=== PATIENT | female | born 1945 | race African-American/Black ===

== ENCOUNTER 2023-06-04 14:20 | Inpatient (IN) ==
--- NOTE | 2023-06-04 15:20 | Emergency Department Note ---
Impression & Plan Weakness, Hypertension, Elevated troponin, Acute hyponatremia, Hypokalemia ED Provider Note NAME: TUTU PAINTING AGE: 78 SEX: F : 1945 ARRIVES VIA: Walk-In INFORMANT: [Patient][family] ED PROVIDER(S): [Lambert Damian MD] CHIEF COMPLAINT: Hypertension HISTORY OF PRESENT ILLNESS: The patient is a 78-year-old female who has not felt well for some time. She was at dermatology today and her blood pressure was high, she was sent to the ER for evaluation. Of note, she did not take her daily BP meds this morning. The patient has scleroderma, a lot of her issues may in fact be from worsening of her scleroderma--as per dermatology. Patient complains of some exertional dyspnea. She is weak. She has a mild headache. She also complains of some urinary urgency/frequency although it does not burn to urinate. There has been no fever, no cough. She has lost some weight. She denies vomiting or diarrhea. PMHx/PSHx/Social Hx: See Below PHYSICAL EXAM: GENERAL: Patient is in no acute distress. Quite thin. HEENT: No acute trauma, normocephalic atraumatic, mucous membranes moist, no nasal congestion. NECK: No stridor, no adenopathy, no meningismus, trachea is midline. LUNGS: Diminished breath sounds bilaterally, no wheezing, no respiratory distress. HEART: Without murmurs gallops or rubs, regular rate and rhythm. ABDOMEN: Soft, nontender, no peritonitis. EXTREMITIES: No cyanosis, full range of motion of all the joints without pain or difficulty. NEUROLOGIC: Awake and alert, no speech slur, no acute motor or sensory deficits, no focal weakness. SKIN: No jaundice, no diaphoresis. DIFFERENTIAL DIAGNOSIS: Electrolyte imbalance, dehydration, anemia, UTI, medication noncompliance, intracranial bleeding, cardiac ischemia, among others. EMERGENCY DEPARTMENT PROCEDURES: MEDICAL DECISION MAKING: There is a mild leukocytosis, this could be consistent with infection. There was a normal hemoglobin and platelet count. No coagulopathy. Sodium and potassium were both low. Chloride was low. No renal failure. No concerning liver enzyme elevation. The patient appeared to be in a euthyroid state. ECG showed a sinus rhythm, no obvious acute ischemia. Cardiac enzyme testing x 1 was slightly elevated. This troponin elevation could be secondary to cardiac injury or just mismatch from her high blood pressure alone. Chest x-ray did not show pneumonia or CHF. Brain CT showed no acute bleed or mass effect. A potential meningioma was found incidentally. Urinalysis did not show findings of infection. On exam, the patient was thin and frail and hypertensive. Patient was given IV labetalol 10 mg, a second dose of IV labetalol 10 mg was given. She was given her typical dose of oral losartan and oral nifedipine. She received IV saline 1 L. She was given IV potassium. Patient's blood pressure has improved. She is currently resting and seems comfortable. Given the hypertension, the weakness, the electrolyte abnormalities, the elevated troponin, I do think a hospital stay would be warranted. She requires further care, cardiac and blood pressure monitoring. Case management was contacted. The on-call hospitalist was consulted. Prior/Outside records/notes reviewed: None ECG per my interpretation: Indication was hypertension. The ECG shows a normal sinus rhythm with a rate of 92. There is no acute ST elevation, no PVCs. There is an incomplete right bundle branch block. QTc is 422. Continuous Cardiac Monitoring per my interpretation: An order was placed for continuous cardiac monitoring. The monitor shows a rate of 63 with normal sinus rhythm. Imaging/x-ray results per my interpretation: Chest x-ray does not show mediastinal widening, pneumonia or pneumothorax. Chronic Medical/Social conditions affecting care: Advanced age. Care/Management discussed with: Case management, the on-call hospitalist. Level of care consideration(s): After review of the information above and other included data: --I believe the patient requires escalation of care to admission DISPOSITION: Admission Past Med/Surg History Medical History Scleroderma Interstitial lung disease History of anxiety Chronic obstructive pulmonary disease Asthma Hyperlipidemia Hypertension Surgical History Hx of cardiac cath felt weak at home-taken by ambulance to [facility], no stents placed>"no cardiac findings, it was due to stress"; f/u [facility] cardio at Hx of colonoscopy Social History Smoking Status: Never smoker Second Hand Exposure: Yes (hx in the workplace); Do You Dip or Chew Tobacco: No; Hx Alcohol Use: No Hx Substance Use: No Preferred Language: Trinidadian Communication Ability: Effective Director Of Anesthesia Services Required: No Beliefs That Will Affect Care: None Current Living Situation: Family Feels Safe at Home: Yes Assistive Devices: Denture - Upper, Denture - Lower and Glasses Allergies Allergies Allergy/AdvReac Type Severity Reaction Status Date / Time amlodipine [From Deng] Allergy Rash Verified 06/04/23 12:48 olmesartan [From Benicar] Allergy Rash Verified 06/04/23 12:48 Home Meds Home Medications Medication Instructions Recorded Confirmed ascorbic acid (vitamin C) 1,000 mg 1 g PO QAM 02/01/23 06/04/23 tablet (Vitamin C) aspirin 81 mg capsule 81 mg PO QAM 02/01/23 06/04/23 atorvastatin 20 mg tablet 20 mg PO Q2D 02/01/23 06/04/23 coenzyme Q10 100 mg capsule (Co 100 mg PO QAM 02/01/23 06/04/23 Q-10) fluticasone furoate 100 1 inh inhalation QAM 02/01/23 06/04/23 mcg-vilanterol 25 mcg/dose inhalation powder (Breo Ellipta) losartan 25 mg tablet 25 mg PO QAM 02/01/23 06/04/23 multivitamin 1 tab PO QAM 02/01/23 06/04/23 nifedipine 30 mg tablet,extended 30 mg PO QAM 02/01/23 06/04/23 release Previous Rx's Medication Instructions Recorded esomeprazole magnesium 40 mg 40 mg PO DAILY #90 caps 05/17/23 capsule,delayed release sucralfate 100 mg/mL oral 10 ml PO QID #420 mL 05/21/23 suspension (Carafate) Results & Data (ED) Vital Signs Vital Signs - 24 hr 06/04/23 14:42 06/04/23 15:37 06/04/23 15:48 Temperature 36.6 C Temperature Source Temporal Artery Scan Pulse Rate 63 84 87 Pulse Rate [Apical] Pulse Rhythm [Apical] Pulse Strength [Apical] Respiratory Rate 20 Respiratory Effort / Characteristics Non-Labored Spontaneous Respiratory Depth Normal Respiratory Pattern Blood Pressure 228/116 H 255/137 H Blood Pressure [Right Arm] Blood Pressure Mean 153 Blood Pressure Mean [Right Arm] Blood Pressure Position [Right Arm] Pulse Oximetry 97 Oxygen Delivery Method Room Air Sepsis Recent Fever Within 48 Hours No Sepsis New/Unexplained Change in Mental Status N/A Sepsis Action Taken by Nursing No Action Required 06/04/23 15:54 06/04/23 15:54 06/04/23 15:55 Temperature Temperature Source Pulse Rate 75 Pulse Rate [Apical] Pulse Rhythm [Apical] Pulse Strength [Apical] Respiratory Rate Respiratory Effort / Characteristics Respiratory Depth Respiratory Pattern Blood Pressure 239/119 H Blood Pressure [Right Arm] Blood Pressure Mean Blood Pressure Mean [Right Arm] Blood Pressure Position [Right Arm] Pulse Oximetry 96 96 Oxygen Delivery Method Room Air Room Air Sepsis Recent Fever Within 48 Hours Sepsis New/Unexplained Change in Mental Status Sepsis Action Taken by Nursing 06/04/23 16:26 06/04/23 16:30 06/04/23 17:00 Temperature Temperature Source Pulse Rate 75 Pulse Rate [Apical] 72 74 Pulse Rhythm [Apical] Regular Regular Pulse Strength [Apical] Normal Normal Respiratory Rate 20 15 Respiratory Effort / Characteristics Non-Labored Spontaneous Non-Labored Spontaneous Respiratory Depth Normal Normal Respiratory Pattern Regular Regular Blood Pressure 224/106 H Blood Pressure [Right Arm] 178/93 H 158/93 H Blood Pressure Mean Blood Pressure Mean [Right Arm] 121 114 Blood Pressure Position [Right Arm] Lying Lying Pulse Oximetry 96 95 Oxygen Delivery Method Room Air Room Air Sepsis Recent Fever Within 48 Hours Sepsis New/Unexplained Change in Mental Status Sepsis Action Taken by [facility] Medications Current Medication List: was personally reviewed by me Laboratory Data Attestation: I reviewed the patient's lab results. 06/04/23 14:59 06/04/23 14:59 Lab Results 06/04/23 06/04/23 Range/Units 14:58 14:59 WBC 11.36 H (4.8-10.8) K/ul RBC 5.22 (4.20-5.40) M/uL Hgb 13.5 (12.0-16.0) g/dl Hct 40.9 (37.0-47.0) % MCV 78.4 L (80.0-100.0) fL MCH 25.9 (25.0-34.0) pg MCHC 33.0 (32.0-36.0) g/dL RDW Std Deviation 43.8 (36.4-46.3) fL RDW Coeff of Torsten 15.5 H (11.5-14.5) % Plt Count 191 (130-400) K/uL MPV 9.8 (9.4-12.4) fL Immature Gran % (Auto) 0.4 % Neut % (Auto) 77.0 % Lymph % (Auto) 14.8 % Johnson % (Auto) 6.9 % Eos % (Auto) 0.4 % Baso % (Auto) 0.5 % Neut # (Auto) 8.75 H (1.40-6.50) K/uL Lymph # (Auto) 1.68 (1.20-3.40) K/uL Johnson # (Auto) 0.78 H (0.11-0.59) K/uL Eos # (Auto) 0.04 (0.00-0.50) K/uL Baso # (Auto) 0.06 (0.00-0.20) K/uL Immature Gran # (Auto) 0.05 (0.01-0.20) K/uL PT 11.2 (9.0-12.0) Seconds INR 1.0 (0.9-1.1) APTT 30 (21-31) Seconds PTT Ratio 1.1 Sodium 130 L (136-145) mmol/L Potassium 2.9 L (3.5-5.1) mmol/L Chloride 88 L (98-107) mmol/L Carbon Dioxide 34 H (21-32) mmol/L Anion Gap 8 (3-11) BUN 28 H (6-23) mg/dl Creatinine 1.09 (0.6-1.2) mg/dl Est Cr Clr Drug Dosing Not Reportable Est GFR ( Amer) 56.3 ml/min Est GFR (Non-Af Amer) 48.6 ml/min BUN/Creatinine Ratio 25.7 H (10-20) Glucose 155 H (70-99(Fasting)) mg/dl Calcium 10.0 (8.6-10.3) mg/dl Magnesium 1.8 (1.7-2.4) mg/dl Total Bilirubin 1.2 H (0.2-1.0) mg/dl AST 24 (13-39) U/L ALT 15 (7-52) U/L Alkaline Phosphatase 91 (34-104) U/L Troponin I High Sens 41.0 H (0-14) pg/ml Total Protein 7.7 (6.0-8.3) gm/dl Albumin 4.2 (3.4-5.0) gm/dl Globulin 3.5 (2.5-4.0) gm/dl Albumin/Globulin Ratio 1.2 (0.9-2) TSH 2.780 (0.300-4.500) uIu/ml Urine Color Yellow Urine Appearance Clear (Clear) Urine pH 6.5 (4.5-7.5) Ur Specific Agency 1.012 (1.000-1.030) Urine Protein 2+ H (Negative) Urine Glucose (UA) Trace H (Negative) Urine Ketones Negative (Negative) Urine Blood 1+ H (Negative) Urine Nitrite Negative (Negative) Urine Bilirubin Negative (Negative) Urine Urobilinogen Negative (Negative) Ur Leukocyte Esterase Negative (Negative) Urine WBC (Auto) 1-5 (0-5) /hpf Urine RBC (Auto) 5-10 H (0-4) /hpf U Hyaline Cast (Auto) 1-5 (0-5) /lpf U Epithel Cells (Auto) 20-30 H (0-5) /lpf Urine Bacteria (Auto) Negative (Negative) Administered Medications Discontinued Medications Sodium Chloride (Nss) 500 mls @ 999 mls/hr IV .Q31M ONE Stop: 06/04/23 15:42 Last Infusion: 06/04/23 16:10 Dose: Infused Documented By: Admin: 06/04/23 15:39 Dose: 999 mls/hr Documented By: SHANAE Labetalol HCl (Labetalol Hcl Iv 5 Mg/Ml 20ml) 10 mg IV NOW STA Stop: 06/04/23 15:13 Last Admin: 06/04/23 15:37 Dose: 10 mg Documented By: SHANAE Co-signed By: CC Labetalol HCl (Labetalol Hcl Iv 5 Mg/Ml 20ml) 10 mg IV NOW STA Stop: 06/04/23 16:15 Last Admin: 06/04/23 16:26 Dose: 10 mg Documented By: SHANAE Co-signed By: ZACHARY Losartan Potassium (Losartan Potassium 25 Mg Tab) 25 mg PO NOW STA Stop: 06/04/23 15:13 Last Admin: 06/04/23 15:47 Dose: 25 mg Documented By: SHANAE Nifedipine (Nifedipine Extended Rel 30 Mg Tabcr) 30 mg PO NOW STA Stop: 06/04/23 15:13 Last Admin: 06/04/23 15:46 Dose: 30 mg Documented By: HJW Imaging Data Radiologist's Impression: Chest X-Ray 06/04/23 14:46 XR chest 1V portable CLINICAL HISTORY: Chest pain, nonspecific COMPARISON STUDY: Chest radiograph and chest CT May 21, 2023. FINDINGS: No pneumothorax or pleural effusion is present. Moderate cardiomegaly is unchanged. There is no evidence for pulmonary edema. Mild interstitial thickening is similar to prior exam. This is likely chronic. IMPRESSION: No acute cardiopulmonary findings. No significant change in appearance of the chest. ACT 112: Negative or not required by law. Electronically signed by: Ronald Braga M.D. 06/04/2023 3:[address] 06/04/23 15:12 CT OF THE HEAD WITHOUT CONTRAST CLINICAL HISTORY: Hypertension. Headache. COMPARISON STUDY: No previous studies for comparison. CT DOSE: 625.8 mGy.cm TECHNIQUE: Helical axial images of the head were obtained without IV contrast. Automated exposure control was utilized for the study. A dose lowering technique was utilized adhering to the principles of ALARA. FINDINGS: No acute intracranial hemorrhage, midline shift or mass effect is present. White matter hypodensities favor small vessel disease. The ventricular system is unremarkable. The basal cisterns are patent. No extra-axial collections are present. There are no findings to suggest acute dural sinus thrombosis or acute territorial infarct. There is a possible 1.2 cm hyperdense extra-axial lesion overlying the medial left cerebellar hemisphere. No significant calvarial abnormalities are present. Visualized portions of the sinuses and mastoid air cells are clear. IMPRESSION: 1. No acute intracranial findings. 2. Possible small posterior fossa meningioma. ACT 112: Negative or not required by law. Electronically signed by: Ronald Braga M.D. 06/04/2023 3:57 PM Discharge Plan Visit Data Chief Complaint: Hypertension Stated Complaint: ELEVATED B/P - SOB ED Provider: Lambert Damian Discharge Problem: Weakness, Hypertension, Elevated troponin, Acute hyponatremia, Hypokalemia Patient Disposition: Admitted As Inpatient Condition: Fair Forms Stand Alone Forms: [facility] [employer] Prescriptions Prescriptions: No Action esomeprazole magnesium 40 mg capsule,delayed release(DR/EC) 40 mg PO DAILY Qty: 90 3RF multivitamin Tablet 1 tab PO QAM ascorbic acid (vitamin C) [Vitamin C] 1,000 mg Tablet 1 g PO QAM atorvastatin 20 mg Tablet 20 mg PO Q2D nifedipine 30 mg Tablet Extended Release 30 mg PO QAM losartan 25 mg Tablet 25 mg PO QAM coenzyme Q10 [Co Q-10] 100 mg Capsule 100 mg PO QAM fluticasone furoate-vilanterol [Breo Ellipta] 100-25 mcg/dose Blister With Device 1 inh INHALATION QAM aspirin 81 mg Capsule 81 mg PO QAM sucralfate [Carafate] 100 mg/mL suspension 10 ml PO QID Qty: 420 0RF Rx Instructions: swish in mouth and swallow; use after food/drink: May substitute tablets as a slurry. Referrals Referrals: Kayleigh Rowley CRNP [Primary Care Provider] - Discharge Problem: Hypertension Qualifiers: Hypertension type: unspecified Qualified Code(s): I10 - Essential (primary) hypertension
[2023-06-04 15:34] LABS: Basophils # (auto) 0.06 K/uL (0.00-0.20); Basophils % (auto) 0.5 %; Eosinophils # (auto) 0.04 K/uL (0.00-0.50); Eosinophils % (auto) 0.4 %; Hematocrit (blood only) 40.9 % (37.0-47.0); Hemoglobin 13.5 g/dl (12.0-16.0); Immature Granulocytes # (auto) 0.05 K/uL (0.01-0.20); Immature Granulocytes % (auto) 0.4 %; Lymphocytes # (auto) 1.68 K/uL (1.20-3.40); Lymphocytes % (auto) 14.8 %; Mean Corpuscular Hemoglobin 25.9 pg (25.0-34.0); Mean Corpuscular Volume 78.4 fL (80.0-100.0); Mean Platelet Volume 9.8 fL (9.4-12.4); Monocytes # (auto) 0.78 K/uL (0.11-0.59); Monocytes % (auto) 6.9 %; Neutrophils # (auto) 8.75 K/uL (1.40-6.50); Platelet Count 191 K/uL (130-400); RDW Coefficient of Variation 15.5 % (11.5-14.5); RDW Standard Deviation 43.8 fL (36.4-46.3); Red Blood Count 5.22 M/uL (4.20-5.40); White Blood Count 11.36 K/ul (4.8-10.8)
[2023-06-04] MEDS: LABETALOL HCL IV 5 MG/ML 20ML IV STA ×2 (15:37→16:26)
[2023-06-04] MEDS: SODIUM CHLORIDE 0.9% 500 ML IV ONE ×2 (15:39→17:26)
[2023-06-04 15:44] LABS: Alanine Aminotransferase 15 U/L (7-52); Albumin Globulin Ratio 1.2 (0.9-2); Albumin Level 4.2 gm/dl (3.4-5.0); Alkaline Phosphatase 91 U/L (34-104); Anion Gap 8 (3-11); Aspartate Aminotransferase 24 U/L (13-39); BUN Creatinine Ratio 25.7 (10-20); Bilirubin,Total 1.2 mg/dl (0.2-1.0); Blood Urea Nitrogen 28 mg/dl (6-23); Carbon Dioxide 34 mmol/L (21-32); Chloride 88 mmol/L (98-107); Est GFR (African American) 56.3 ml/min; Est GFR (Non-African American) 48.6 ml/min; Globulin 3.5 gm/dl (2.5-4.0); Glucose 155 mg/dl (70-99(Fasting)); Magnesium 1.8 mg/dl (1.7-2.4); Potassium 2.9 mmol/L (3.5-5.1); Sodium 130 mmol/L (136-145); Total Protein 7.7 gm/dl (6.0-8.3)
--- NOTE | 2023-06-04 15:45 | XRay Report ---
XR chest 1V portable CLINICAL HISTORY: Chest pain, nonspecific COMPARISON STUDY: Chest radiograph and chest CT May 21, 2023. FINDINGS: No pneumothorax or pleural effusion is present. Moderate cardiomegaly is unchanged. There i s no evidence for pulmonary edema. Mild interstitial thickening is similar to prior exam. This is lik radhika chronic. IMPRESSION: No acute cardiopulmonary findings. No significant change in appearance of the chest. ACT 112: Negative or not required by law. Electronically signed by: Ronald Braga M.D. 06/04/2023 3:44 PM
[2023-06-04] MEDS: NIFEdipine EXTENDED REL 30 MG TABCR PO STA (15:46)
[2023-06-04] MEDS: LOSARTAN POTASSIUM 25 MG TAB PO STA (15:47)
[2023-06-04 15:49] LABS: Partial Thromboplastin Ratio 1.1; Partial Thromboplastin Time 30 Seconds (21-31); Prothrombin Time 11.2 Seconds (9.0-12.0)
--- NOTE | 2023-06-04 15:59 | CT Scan Report ---
CT OF THE HEAD WITHOUT CONTRAST CLINICAL HISTORY: Hypertension. Headache. COMPARISON STUDY: No previous studies for comparison. CT DOSE: 625.8 mGy.cm TECHNIQUE: Helical axial images of the head were obtained without IV contrast. Automated exposure con trol was utilized for the study. A dose lowering technique was utilized adhering to the principles o f ALARA. FINDINGS: No acute intracranial hemorrhage, midline shift or mass effect is present. White matter hyp odensities favor small vessel disease. The ventricular system is unremarkable. The basal cisterns are patent. No extra-axial collections are present. There are no findings to suggest acute dural sinus t hrombosis or acute territorial infarct. There is a possible 1.2 cm hyperdense extra-axial lesion over lying the medial left cerebellar hemisphere. No significant calvarial abnormalities are present. Visu alized portions of the sinuses and mastoid air cells are clear. IMPRESSION: 1. No acute intracranial findings. 2. Possible small posterior fossa meningioma. ACT 112: Negative or not required by law. Electronically signed by: Ronald Braga M.D. 06/04/2023 3:57 PM
[2023-06-04 17:04] LABS: Appearance Urine Clear (Clear); Bacteria Urine Automated Negative (Negative); Bilirubin Urine Negative (Negative); Blood Urine 1+ (Negative); Color Urine Yellow; Epithelial Cell Urine Auto 20-30 /lpf (0-5); Glucose Urine UA Trace (Negative); Ketones Urine Negative (Negative); Leukocyte Esterase Urine Negative (Negative); Nitrite Urine Negative (Negative); Protein Urine 2+ (Negative); Specific Gravity Urine 1.012 (1.000-1.030); Urobilinogen Urine Negative (Negative); pH Urine 6.5 (4.5-7.5)
[2023-06-04] MEDS: POTASSIUM CHLORIDE / WTR 10 MEQ/100 ML PLCT IV ONE (17:25)
--- NOTE | 2023-06-04 17:46 | History & Physical Report ---
Date of Service June 04, 2023 History of Present Illness Primary Care Provider: PETRA Kramer [id number] sent by scleroderma Allergies Allergy/AdvReac Type Severity Reaction Status Date / Time amlodipine [From Deng] Allergy Rash Verified 06/04/23 12:48 olmesartan [From Benicar] Allergy Rash Verified 06/04/23 12:48 Home Medications Medication Instructions Recorded Confirmed Type ascorbic acid (vitamin C) 1,000 mg 1 g PO QAM 02/01/23 06/04/23 History tablet (Vitamin C) aspirin 81 mg capsule 81 mg PO QAM 02/01/23 06/04/23 History atorvastatin 20 mg tablet 20 mg PO Q2D 02/01/23 06/04/23 History coenzyme Q10 100 mg capsule (Co 100 mg PO QAM 02/01/23 06/04/23 History Q-10) fluticasone furoate 100 1 inh inhalation QAM 02/01/23 06/04/23 History mcg-vilanterol 25 mcg/dose inhalation powder (Breo Ellipta) losartan 25 mg tablet 25 mg PO QAM 02/01/23 06/04/23 History multivitamin 1 tab PO QAM 02/01/23 06/04/23 History nifedipine 30 mg tablet,extended 30 mg PO QAM 02/01/23 06/04/23 History release esomeprazole magnesium 40 mg 40 mg PO DAILY #90 caps 05/17/23 06/04/23 Rx capsule,delayed release sucralfate 100 mg/mL oral 10 ml PO QID #420 mL 05/21/23 06/04/23 Rx suspension (Carafate) Past Med/Surg History Medical History Scleroderma Interstitial lung disease History of anxiety Chronic obstructive pulmonary disease Asthma Hyperlipidemia Hypertension Surgical History Hx of cardiac cath felt weak at home-taken by ambulance to [facility], no stents placed>"no cardiac findings, it was due to stress"; f/u [facility] cardio at Hx of colonoscopy Social History Smoking Status: Never smoker Second Hand Exposure: Yes (hx in the workplace); Do You Dip or Chew Tobacco: No; Hx Alcohol Use: No Hx Substance Use: No Preferred Language: Ukrainian Communication Ability: Effective 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 Beliefs That Will Affect Care: None Current Living Situation: Family Feels Safe at Home: Yes Assistive Devices: Denture - Upper, Denture - Lower and Glasses Results & Data Results & Data Vital Signs (Past 12 Hours) Vital Signs Temp Pulse Pulse Resp BP BP Pulse Ox 06/04/23 17:10 74 158/93 H 06/04/23 17:00 74 15 158/93 H 95 06/04/23 16:30 72 20 178/93 H 96 06/04/23 16:26 75 224/106 H 06/04/23 15:55 75 239/119 H 06/04/23 15:54 96 06/04/23 15:54 96 06/04/23 15:48 87 06/04/23 15:37 84 255/137 H 06/04/23 14:42 36.6 C 63 20 228/116 H 97 O2 Del Method 06/04/23 17:10 06/04/23 17:00 Room Air 06/04/23 16:30 Room Air 06/04/23 16:26 06/04/23 15:55 06/04/23 15:54 Room Air 06/04/23 15:54 Room Air 06/04/23 15:48 06/04/23 15:37 06/04/23 14:42 Room Air
--- NOTE | 2023-06-04 18:36 | History & Physical Report ---
Date of Service June 04, 2023 Assessment & Plan (1) Hypertension: Plan: Hypertension With concern for scleroderma as above, captopril started as above Continue nifedipine Losartan discontinued, patient did receive dose of 4/2. Captopril started 4/3 as twice daily, may uptitrate as needed Continue aspirin Patient with greatly improved blood pressure control following oral nifedipine home dose, and 2 doses of labetalol 10 mg at home losartan in ER. Labetalol on- call as needed for BP greater than 180, at time of admission BP greatly improved to 150s systolic Patient does have a history of hypokalemia, although with poor dietary intake. Suspect this is from poor solute intake, hyperaldosteronism is within differential and could trial spironolactone if blood pressure remains elevated (2) Scleroderma: Plan: Scleroderma Follows with [facility] rheumatology. Progressively increasing blood pressure as outpatient, 246 systolic and outpatient management. Concern for scleroderma renal crisis. UA with 2+ protein, creatinine is not elevated. On referral recommended peripheral smear for schistocytes/LDH/haptoglobin levels to evaluate for Maha, switching from ARB to LUKAS specifically captopril every 6 hours titrated to response, and screening with hepatitis B/C for future CellCept inclusion. CXR: No acute findings CThead: Possible small posterior fossa meningioma, no acute findings. <1.2cm extraaxial lesion?meningioma. MRI ordered to confirm, recommend serial MRI and is <3cm. Does not currently appear to be in a renal crisis. Blood smear is pending as above; she does not have acute anemia or thrombocytopenia Losartan switched to captopril as noted Can continue outpatient follow-up for this (3) Takotsubo cardiomyopathy: Plan: CAD, history of takutsubo cardiomyopathy Takotsubo cardiomyopathy EF 30-35% in 2021, cath without significant ischemic changes although? LV thrombus and was treated with a course of Eliquis; follow- up MRI with no evidence of LV thrombus and cardiomyopathy improved Chronic mild troponin elevation, 41 on admission repeat downtrending at 38.1 suspect due to hypertension EKG normal sinus rhythm without territorial ST/T wave changes No signs of ACS on admission Hyperlipidemia Continue statin (4) H. pylori infection: Plan: History of dysphagia, H. pylori With history of candidiasis 02/2023. Gastritis was noted. Biopsies consistent with severe chronic gastritis, intestinal metaplasia negative for dysplasia, H. pylori was positive. - Completed a course of both antibiotics with antifungal for associated abby. Completed triple antibiotic therapy this past month (5) Gastritis: Plan: - H2 PRN (6) Hypokalemia: Plan: Hypokalemia 2.9 on admission, repleted, trended (7) Chronic obstructive pulmonary disease: Plan: COPD Continue Breo Continue [facility] [place] Plan Patient also with poor appetite, discussed her/benefits of potential Marinol. Would like to try this to maximize appetite and nutrition. Ordered. DVT prophylaxis: Lovenox Disposition: PCU for IV antihypertensive availability CODE STATUS Diet: Heart History of Present Illness Primary Care Provider: PETRA Kramer Edith is a 78-year-old female with a past medical history of interstitial lung disease, Takotsubo cardiomyopathy, mild CAD, whitecoat hypertension who was sent to the ER for hypertension. She did not take her BP meds morning of presentation. Patient notes that she has a history of scleroderma. Has had exertional dyspnea, weakness, mild headache. Persistent urinary frequency and urgency without dysuria. Endorses weight loss Eliane is seen at bedside with her daughters. She reports that she has had gen erally difficult to control blood pressure and this has been particularly high in the last 2 weeks. She has had intermittent chest pain although this has not been exertional or brought up with exertion, does seem to come out when her blood pressure is high. Some intermittent shortness of breath but again this is not exertional. Denies fever, chills, cough, sputum production. Does have a history of reflux and recently completed a course of triple antibiotic therapy for H. pylori in addition to antifungal course for candidiasis. Stomach feels better sometimes a little bit of reflux, but has a greatly diminished appetite. Denies lightheadedness, dizziness, syncope. Has had polyuria without dysuria. No abdominal or flank pain. No lightheadedness/dizziness or syncope. She has had no bleeding and denies rashes. She does have a chronic decrease in visual acuity bilaterally and a history of cataracts. Endorses intermittent headache, none at present. She is not sure if this is associated with blood pressure or not. She does not have any weakness or vision change when she has headache, and does not have first morning headaches. Medical History: Reviewed Medications: Reviewed Surgical History: Reviewed Family history: Reviewed Allergies: Reviewed Social History: Reviewed Code Status: Full Allergies Allergy/AdvReac Type Severity Reaction Status Date / Time amlodipine [From Deng] Allergy Rash Verified 06/04/23 12:48 olmesartan [From Benicar] Allergy Rash Verified 06/04/23 12:48 Home Medications Medication Instructions Recorded Confirmed Type ascorbic acid (vitamin C) 1,000 mg 1 g PO QAM 02/01/23 06/04/23 History tablet (Vitamin C) aspirin 81 mg capsule 81 mg PO QAM 02/01/23 06/04/23 History atorvastatin 20 mg tablet 20 mg PO Q2D 02/01/23 06/04/23 History coenzyme Q10 100 mg capsule (Co 100 mg PO QAM 02/01/23 06/04/23 History Q-10) fluticasone furoate 100 1 inh inhalation QAM 02/01/23 06/04/23 History mcg-vilanterol 25 mcg/dose inhalation powder (Breo Ellipta) losartan 25 mg tablet 25 mg PO QAM 02/01/23 06/04/23 History multivitamin 1 tab PO QAM 02/01/23 06/04/23 History nifedipine 30 mg tablet,extended 30 mg PO QAM 02/01/23 06/04/23 History release esomeprazole magnesium 40 mg 40 mg PO DAILY #90 caps 05/17/23 06/04/23 Rx capsule,delayed release sucralfate 100 mg/mL oral 10 ml PO QID #420 mL 05/21/23 06/04/23 Rx suspension (Carafate) Past Med/Surg History Medical History Scleroderma Interstitial lung disease History of anxiety Chronic obstructive pulmonary disease Asthma Hyperlipidemia Hypertension Surgical History Hx of cardiac cath felt weak at home-taken by ambulance to [facility], no stents placed>"no cardiac findings, it was due to stress"; f/u [facility] cardio at Hx of colonoscopy Social History Smoking Status: Never smoker Second Hand Exposure: Yes (hx in the workplace); Do You Dip or Chew Tobacco: No; Hx Alcohol Use: No Hx Substance Use: No Preferred Language: Nigerian Communication Ability: Effective [place] Required: No Beliefs That Will Affect Care: None Current Living Situation: Family Feels Safe at Home: Yes Assistive Devices: Denture - Upper, Denture - Lower and Glasses Physical Exam Physical Exam: General: A&Ox3. NAD. Cooperative. HEENT: Atraumatic, normocephalic. Vision and hearing grossly intact. Pupils equal and reactive to light, decreased visual acuity improved with glasses, cataracts appreciable. No facial Pulm: CTAB A&P. -wheezes, -rales, -rhonchi. Symmetrical chest rise. No increased work of breathing. No respiratory distress. Cardiac: RRR, soft sm. Radial pulses intact and symmetrical. Abdominal: Nontender, nondistended, soft. BS present. 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 No ankle edema Results & Data Results & Data Vital Signs (Past 12 Hours) Vital Signs Temp Pulse Pulse Resp BP BP Pulse Ox 06/04/23 17:10 74 158/93 H 06/04/23 17:00 74 15 158/93 H 95 06/04/23 16:30 72 20 178/93 H 96 06/04/23 16:26 75 224/106 H 06/04/23 15:55 75 239/119 H 06/04/23 15:54 96 06/04/23 15:54 96 06/04/23 15:48 87 06/04/23 15:37 84 255/137 H 06/04/23 14:42 36.6 C 63 20 228/116 H 97 O2 Del Method 06/04/23 17:10 06/04/23 17:00 Room Air 06/04/23 16:30 Room Air 06/04/23 16:26 06/04/23 15:55 06/04/23 15:54 Room Air 06/04/23 15:54 Room Air 06/04/23 15:48 06/04/23 15:37 06/04/23 14:42 Room Air PG Care Time/CCT Total # of Minutes Spent Total Time Spent with Patient: Total time spent is greater than 50% in coordination of care (as documented) at patient's floor/unit and/or counseling patient: Coding Level of Care Code 36455 INT INP/OBS CARE MIN Diagnoses Hypertension I10 Hypertension type: unspecified Scleroderma M34.9 Takotsubo cardiomyopathy I51.81 H. pylori infection A04.8 Gastritis K29.50 Chronicity: chronic Gastritis bleeding: without bleeding Gastritis type: unspecified gastritis Hypokalemia E87.6 Chronic obstructive pulmonary disease J44.9 (1) Hypertension Hypertension type: unspecified Qualified Code(s): I10 - Essential (primary) hypertension (5) Gastritis Chronicity: chronic Gastritis bleeding: without bleeding Gastritis type: unspecified gastritis Qualified Code(s): K29.50 - Unspecified chronic gastritis without bleeding
[2023-06-04] MEDS: MAGNESIUM OXIDE 400 MG TAB PO SCH (20:02)
[2023-06-04] MEDS: POTASSIUM CHLORIDE CRTAB 20 MEQ TABCR PO STA (20:03)
[2023-06-04] MEDS ORDERED: FAMOTIDINE 20 MG TAB PO PRN (20:15)
[2023-06-04] MEDS ORDERED: ACETAMINOPHEN 325 MG TAB PO PRN (20:15)
[2023-06-04] MEDS: ATORVASTATIN 20 MG TAB PO SCH (22:44)
[2023-06-04] MEDS: SUCRALFATE 1 GM/10 ML UDC PO SCH (22:45)
[2023-06-04] MEDS: droNABinol 2.5 MG CAP PO SCH (22:45)
[2023-06-04] MEDS: POTASSIUM CHLORIDE CRTAB 20 MEQ TABCR PO SCH (22:45)
[2023-06-04 23:31] LABS: BUN Creatinine Ratio 26.1 (10-20); Calcium 9.1 mg/dl (8.6-10.3); Creatinine Clr Calc Pharmacy 30.8 ml/min; Est GFR (African American) 50.6 ml/min; Est GFR (Non-African American) 43.7 ml/min; Potassium 3.1 mmol/L (3.5-5.1)
[2023-06-05 04:13] LABS: Basophils # (auto) 0.06 K/uL (0.00-0.20); Basophils % (auto) 0.7 %; Eosinophils # (auto) 0.11 K/uL (0.00-0.50); Eosinophils % (auto) 1.3 %; Hematocrit (blood only) 32.7 % (37.0-47.0); Hemoglobin 11.4 g/dl (12.0-16.0); Immature Granulocytes # (auto) 0.02 K/uL (0.01-0.20); Immature Granulocytes % (auto) 0.2 %; Lymphocytes # (auto) 1.74 K/uL (1.20-3.40); Lymphocytes % (auto) 20.2 %; Mean Corpuscular Hgb Conc 34.9 g/dL (32.0-36.0); Mean Corpuscular Volume 77.3 fL (80.0-100.0); Monocytes # (auto) 0.81 K/uL (0.11-0.59); Monocytes % (auto) 9.4 %; Neutrophils # (auto) 5.89 K/uL (1.40-6.50); Neutrophils % (auto) 68.2 %; Platelet Count 181 K/uL (130-400); RDW Coefficient of Variation 15.9 % (11.5-14.5); RDW Standard Deviation 44.7 fL (36.4-46.3); Red Blood Count 4.23 M/uL (4.20-5.40); White Blood Count 8.63 K/ul (4.8-10.8)
[2023-06-05 04:14] LABS: BUN Creatinine Ratio 23.8 (10-20); Calcium 9.2 mg/dl (8.6-10.3); Est GFR (African American) 47.3 ml/min; Est GFR (Non-African American) 40.8 ml/min; Potassium 3.5 mmol/L (3.5-5.1)
--- NOTE | 2023-06-05 07:37 | Hospitalist Progress Note ---
Date of Service June 05, 2023 Assessment & Plan (1) Hypertensive emergency: (2) Takotsubo cardiomyopathy: (3) Mild CAD: (4) Scleroderma: (5) Meningioma: Plan Pt is a 78 yo female with a past medical history of scleroderma, interstitial lung disease, Takotsubo cardiomyopathy, mild CAD, and hypertension who presents to the hospital on 06/03 from the Rheumatology office for HTN emergency. With slight bump in kidney function, will monitor overnight and check Cr tomorrow am. Orthostatics pending. PT/OT pending. #Hypertensive emergency - presented with BP 240s systolic and urine + protein from rheum office - question for concern of scleroderma renal crisis so losartan was switched to captopril on 06/04 - continued oral home nifedipine and s/p 2 labetolol 10 mg doses in the ER - today, BP average 150s/80s #Deconditioning, - noted to have 1 week of weakness and issues with poor appetite - will trial marinol for appetite stim - PT/OT pending - orthostatics pending #Hx of Scleroderma Follows with [facility] rheumatology; has had progressively increasing blood pressure as outpatient, 246 systolic and outpatient management. Concern for scleroderma renal crisis. UA with 2+ protein, creatinine is not elevated. On referral recommended peripheral smear for schistocytes/LDH/haptoglobin levels to evaluate for Maha, switching from ARB to LUKAS specifically captopril every 6 h ours titrated to response, and screening with hepatitis B/C for future CellCept inclusion. CXR: No acute findings Does not currently appear to be in a renal crisis. Blood smear is pending as above; she does not have acute anemia or thrombocytopenia Losartan switched to captopril as noted Can continue outpatient follow-up for this #Meningioma - no focal neuro deficits noted on admission CThead: Possible small posterior fossa meningioma, no acute findings. <1.2cm extraaxial lesion?meningioma - should get MRI once discharged for further evaluation of this #Hx of Takotsubo cardiomyopathy: #CAD Takotsubo cardiomyopathy EF 30-35% in 2021, cath without significant ischemic changes although? LV thrombus and was treated with a course of Eliquis; follow- up MRI with no evidence of LV thrombus and cardiomyopathy improved Chronic mild troponin elevation, 41 on admission repeat downtrending at 38.1 suspect due to hypertension EKG normal sinus rhythm without territorial ST/T wave changes No signs of ACS on admission #Hypokalemia, resolved 2.9 on admission, repleted, trended - may have been due to poor oral intake at home - today K was 3.5 #Hx H. pylori infection #Hx gastritis With history of candidiasis 02/2023. Gastritis was noted. Biopsies consistent with severe chronic gastritis, intestinal metaplasia negative for dysplasia, H. pylori was positive. - Completed a course of both antibiotics with antifungal for associated abby. Completed triple antibiotic therapy this past month - Continue home famotidine and PPI #Hyperlipidemia Continue home statin #COPD Continue Breo Continue [facility]-up DVT prophylaxis: Lovenox Admission and Anticipated Discharge Date Admission Date: June 04, 2023 Supervising Physician Co-Signing Physician Notes Attending Physician Supervision Note: I independently interviewed and examined the patient and verified the frausto history and physical, reviewed labs and image studies and agree with findings and care plan noted above. SUZY - creatinine worsened over 24 hours in setting of accelerated hypertensive response and underlying scleroderma and systolic cardiac dysfunction. no sign of infection. UA with 2+ protein and 5-10 RBC. No UO noted in chart. -place diaz -recheck UA -check renal ultrasound. -check renal duplex. -control blood pressure -IVF LR at 80ml/hr -recheck bmp Hypertensive emergency - in setting of scleroderma. On nefedipine and losartan at home -Losartan switched to captopril on admission -continue nefedipine. -continue prn labetolol dose. -renal duplex. CMP - no concern of volume overload. -monitor fluid status while hydrating via IVF Subjective Pt is a 78 yo female with a past medical history of scleroderma, interstitial lung disease, Takotsubo cardiomyopathy, mild CAD, and hypertension who presents to the hospital on 06/03 from the Rheumatology office for HTN emergency. Today, pt states she is feeling okay. No pain anywhere and states she slept pretty good overnight. She states for the past 1 week she has been urinating many times a day and 3 or more times overnight. She states that last night she did not have to pee overnight so she was able to rest much better. She does note some increased fatigue and SOB over this time as well. No further questions or complaints. Review of Systems Review of Systems: Per HPI. Physical Exam Physical Exam: General:Alert and oriented, no acute distress, very pleasant HEENT: Normocephalic, moist oral mucosa, Cardio: Regular rate and rhythm, no murmur, Resp:Lungs clear to auscultation b/l, no wheezes or rhonchi, GI: Soft and nontender, nondistended, bowel sounds active Skin: Warm, pink, dry, Results & Data Results & Data Vital Signs (Past 12 Hours) Vital Signs Pulse Pulse Resp BP BP Pulse Ox Pulse Ox 06/05/23 07:16 79 06/05/23 06:00 76 19 06/05/23 06:00 74 18 163/86 H 98 06/05/23 05:50 74 18 06/05/23 05:40 74 19 06/05/23 05:30 75 19 06/05/23 05:20 77 14 06/05/23 05:10 75 16 06/05/23 05:00 75 21 06/05/23 05:00 75 21 150/78 H 96 06/05/23 04:50 73 20 06/05/23 04:40 78 18 06/05/23 04:30 77 20 06/05/23 04:20 74 15 100 06/05/23 04:10 75 21 99 06/05/23 04:00 75 19 100 06/05/23 03:50 76 19 100 06/05/23 03:40 77 20 100 06/05/23 03:30 77 19 100 06/05/23 03:20 76 20 100 06/05/23 03:10 81 15 100 06/05/23 03:00 74 20 152/77 H 99 06/05/23 03:00 74 20 99 06/05/23 02:50 76 17 100 06/05/23 02:40 75 18 100 06/05/23 02:30 75 20 100 06/05/23 02:20 73 21 100 06/05/23 02:10 75 20 100 06/05/23 02:00 75 24 145/76 H 100 06/05/23 02:00 75 24 100 06/05/23 01:50 73 19 100 06/05/23 01:40 74 20 100 06/05/23 01:30 73 20 100 06/05/23 01:20 74 21 100 06/05/23 01:10 77 19 99 06/05/23 01:00 78 18 143/76 H 99 06/05/23 01:00 78 18 06/05/23 00:50 73 20 06/05/23 00:40 74 18 100 06/05/23 00:30 74 18 100 06/05/23 00:20 74 22 100 06/05/23 00:10 74 20 100 06/05/23 00:00 74 20 133/61 100 06/05/23 00:00 133/61 06/05/23 00:00 72 18 100 06/04/23 23:52 73 06/04/23 23:50 74 20 100 06/04/23 23:40 75 21 06/04/23 23:30 80 19 100 06/04/23 23:20 77 16 100 06/04/23 23:10 75 20 99 06/04/23 23:04 99 06/04/23 23:00 77 18 99 06/04/23 23:00 151/84 H 06/04/23 23:00 78 23 151/84 H 100 06/04/23 22:54 75 20 140/74 99 06/04/23 22:50 78 23 100 06/04/23 22:40 78 20 100 06/04/23 22:30 79 22 100 06/04/23 22:20 77 20 100 06/04/23 22:10 77 22 100 06/04/23 22:00 77 19 140/74 99 06/04/23 22:00 77 19 99 06/04/23 21:51 76 18 99 06/04/23 21:51 76 18 148/81 H 99 06/04/23 21:50 77 20 148/81 H 99 06/04/23 21:40 76 19 100 06/04/23 21:30 79 20 100 06/04/23 21:20 78 22 06/04/23 21:10 82 23 99 06/04/23 20:50 82 19 06/04/23 20:40 78 21 99 06/04/23 20:30 78 21 94 06/04/23 20:20 75 20 06/04/23 20:15 77 06/04/23 20:10 74 21 97 06/04/23 20:00 76 21 06/04/23 19:50 81 27 H 06/04/23 19:40 75 18 O2 Del Method O2 Del Method 06/05/23 07:16 06/05/23 06:00 06/05/23 06:00 06/05/23 05:50 06/05/23 05:40 06/05/23 05:30 06/05/23 05:20 06/05/23 05:10 06/05/23 05:00 06/05/23 05:00 06/05/23 04:50 06/05/23 04:40 06/05/23 04:30 06/05/23 04:20 06/05/23 04:10 06/05/23 04:00 06/05/23 03:50 06/05/23 03:40 06/05/23 03:30 06/05/23 03:20 06/05/23 03:10 06/05/23 03:00 06/05/23 03:00 06/05/23 02:50 06/05/23 02:40 06/05/23 02:30 06/05/23 02:20 06/05/23 02:10 06/05/23 02:00 06/05/23 02:00 06/05/23 01:50 06/05/23 01:40 06/05/23 01:30 06/05/23 01:20 06/05/23 01:10 06/05/23 01:00 06/05/23 01:00 06/05/23 00:50 06/05/23 00:40 06/05/23 00:30 06/05/23 00:20 06/05/23 00:10 06/05/23 00:00 06/05/23 00:00 06/05/23 00:00 06/04/23 23:52 06/04/23 23:50 06/04/23 23:40 06/04/23 23:30 06/04/23 23:20 06/04/23 23:10 06/04/23 23:04 Room Air 06/04/23 23:00 06/04/23 23:00 06/04/23 23:00 06/04/23 22:54 Room Air 06/04/23 22:50 06/04/23 22:40 06/04/23 22:30 06/04/23 22:20 06/04/23 22:10 06/04/23 22:00 06/04/23 22:00 06/04/23 21:51 06/04/23 21:51 06/04/23 21:50 06/04/23 21:40 06/04/23 21:30 06/04/23 21:20 06/04/23 21:10 06/04/23 20:50 06/04/23 20:40 06/04/23 20:30 06/04/23 20:20 06/04/23 20:15 06/04/23 20:10 06/04/23 20:00 06/04/23 19:50 06/04/23 19:40 Resident Activity Tracking Resident Involvement: Resident Care Provided Care Provided: Adult [facility] Medicine
[2023-06-05] MEDS: FLUTICASONE/VILANTEROL 100/25MCG 14 PUFFS/INHALER INH SCH (08:56)
[2023-06-05] MEDS: LACTATED RINGER'S 1,000 ML IV SCH (08:56)
[2023-06-05] MEDS: PANTOprazole 40 MG TAB PO SCH (08:59)
[2023-06-05] MEDS: NIFEdipine EXTENDED REL 30 MG TABCR PO SCH (09:00)
[2023-06-05] MEDS ORDERED: NON-FORMULARY MEDICATION (Coenzyme Q10 [Co Q-10] 100 mg Capsule) PO SCH (09:00)
[2023-06-05] MEDS: MULTIVITAMIN TAB PO SCH (09:00)
[2023-06-05] MEDS: ASPIRIN 81 MG ECTAB PO SCH (09:01)
[2023-06-05] MEDS: ASCORBIC ACID 500 MG TAB PO SCH (09:01)
[2023-06-05 17:18] LABS: Calcium 9.4 mg/dl (8.6-10.3); Potassium 4.1 mmol/L (3.5-5.1)
[2023-06-05 17:24] LABS: BUN Creatinine Ratio 20.3 (10-20); Creatinine Clr Calc Pharmacy 24.7 ml/min; Est GFR (African American) 38.9 ml/min; Est GFR (Non-African American) 33.6 ml/min
[2023-06-05] MEDS: LABETALOL HCL IV 5 MG/ML 20ML IV PRN (17:50)
[2023-06-05] MEDS ORDERED: METOPROLOL TARTRATE 1 MG/ML VIAL IV STA (18:12)
[2023-06-05] MEDS: LABETALOL HCL IV 5 MG/ML 20ML IV STA (18:53)
[2023-06-05 20:40] LABS: Appearance Urine Clear (Clear); Bacteria Urine Automated Negative (Negative); Bilirubin Urine Negative (Negative); Blood Urine Trace (Negative); Color Urine Yellow; Glucose Urine UA Trace (Negative); Ketones Urine Negative (Negative); Leukocyte Esterase Urine Negative (Negative); Nitrite Urine Negative (Negative); RBC Urine Automated 0-4 /hpf (0-4); Specific Gravity Urine 1.008 (1.000-1.030); Urobilinogen Urine Negative (Negative); pH Urine 7.5 (4.5-7.5)
[2023-06-05 20:44] LABS: Protein Urine Trace (Negative)
[2023-06-05] MEDS ORDERED: LABETALOL HCL 100 MG TAB PO SCH (21:00)
[2023-06-05 21:16] LABS: BUN Creatinine Ratio 18.9 (10-20); Calcium 9.4 mg/dl (8.6-10.3); Creatinine Clr Calc Pharmacy 24.4 ml/min; Est GFR (African American) 35.7 ml/min; Est GFR (Non-African American) 30.8 ml/min; Potassium 4.2 mmol/L (3.5-5.1)
[2023-06-06 04:01] LABS: Basophils # (auto) 0.07 K/uL (0.00-0.20); Basophils % (auto) 0.8 %; Eosinophils # (auto) 0.16 K/uL (0.00-0.50); Eosinophils % (auto) 1.8 %; Hematocrit (blood only) 34.5 % (37.0-47.0); Hemoglobin 11.6 g/dl (12.0-16.0); Immature Granulocytes # (auto) 0.04 K/uL (0.01-0.20); Immature Granulocytes % (auto) 0.4 %; Lymphocytes # (auto) 1.83 K/uL (1.20-3.40); Lymphocytes % (auto) 20.6 %; Mean Corpuscular Hemoglobin 26.4 pg (25.0-34.0); Mean Corpuscular Hgb Conc 33.6 g/dL (32.0-36.0); Mean Corpuscular Volume 78.6 fL (80.0-100.0); Mean Platelet Volume 9.3 fL (9.4-12.4); Monocytes # (auto) 0.72 K/uL (0.11-0.59); Monocytes % (auto) 8.1 %; Neutrophils # (auto) 6.08 K/uL (1.40-6.50); Neutrophils % (auto) 68.3 %; Platelet Count 195 K/uL (130-400); RDW Coefficient of Variation 16.1 % (11.5-14.5); RDW Standard Deviation 46.1 fL (36.4-46.3); Red Blood Count 4.39 M/uL (4.20-5.40)
[2023-06-06 04:15] LABS: BUN Creatinine Ratio 21.2 (10-20); Calcium 9.3 mg/dl (8.6-10.3); Creatinine Clr Calc Pharmacy 24.9 ml/min; Est GFR (African American) 36.5 ml/min; Est GFR (Non-African American) 31.5 ml/min; Potassium 4.1 mmol/L (3.5-5.1)
[2023-06-06 06:06] LABS: Appearance Urine Clear (Clear); Bacteria Urine Automated Negative (Negative); Bilirubin Urine Negative (Negative); Blood Urine Negative (Negative); Cast Urine Automated 0 /lpf (0-5); Color Urine Yellow; Glucose Urine UA Trace (Negative); Ketones Urine Negative (Negative); Leukocyte Esterase Urine Negative (Negative); Nitrite Urine Negative (Negative); RBC Urine Automated 0-4 /hpf (0-4); Specific Gravity Urine 1.012 (1.000-1.030); Urobilinogen Urine Negative (Negative); pH Urine 7.5 (4.5-7.5)
[2023-06-06 06:26] LABS: Total Protein Urine Random 37.8 mg/dl (0-11.9)
[2023-06-06 06:31] LABS: Creatinine Urine Random 44.2 mg/dl; Protein Creatinine Ratio Urine 0.9 (0-0.2)
[2023-06-06 06:40] LABS: Protein Urine 1+ (Negative)
--- NOTE | 2023-06-06 07:05 | Hospitalist Progress Note ---
Date of Service June 06, 2023 Assessment & Plan (1) Hypertensive emergency: (2) Takotsubo cardiomyopathy: (3) Mild CAD: (4) Scleroderma: (5) Meningioma: Plan Pt is a 78 yo female with a past medical history of scleroderma, interstitial lung disease, Takotsubo cardiomyopathy, mild CAD, and hypertension who presents to the hospital on 06/03 from the Rheumatology office for HTN emergency. Plan for today is BID-> TID captopril and monitor overnight. Will check Cr tonight and tomorrow am. If Cr stable/improved and BPs permissible, july D/C with plan for pcp f/u Saturday/Saturday for BP check and repeat Cr level. #Hypertensive emergency - presented with BP 240s systolic and urine + protein from rheum office - question for concern of scleroderma renal crisis so losartan was switched to captopril on 06/04 - continued oral home nifedipine and s/p 2 labetolol 10 mg doses in the ER - today, BP average 150-160s/90s - TID captopril 6.25 dosing while here and on discharge #Deconditioning, - noted to have 1 week of weakness and issues with poor appetite - will trial marinol for appetite stim - PT/OT pending; can go home if daughter comfortable with providing support - orthostatics wnl #Hx of Scleroderma Follows with [facility] rheumatology; has had progressively increasing blood pressure as outpatient, 246 systolic and outpatient management. Concern for scleroderma renal crisis. UA with 2+ protein, creatinine is not elevated. On referral recommended peripheral smear for schistocytes/LDH/haptoglobin levels to evaluate for Maha, switching from ARB to LUKAS specifically captopril every 6 hours titrated to response, and screening with hepatitis B/C for future CellCept inclusion. CXR: No acute findings Does not currently appear to be in a renal crisis. Blood smear is pending as above; she does not have acute anemia or thrombocytopenia Losartan switched to captopril as noted Can continue outpatient follow-up for this #Meningioma - no focal neuro deficits noted on admission CThead: Possible small posterior fossa meningioma, no acute findings. <1.2cm extraaxial lesion?meningioma - should get MRI once discharged for further evaluation of this #Hx of Takotsubo cardiomyopathy: #CAD Takotsubo cardiomyopathy EF 30-35% in 2021, cath without significant ischemic changes although? LV thrombus and was treated with a course of Eliquis; follow- up MRI with no evidence of LV thrombus and cardiomyopathy improved Chronic mild troponin elevation, 41 on admission repeat downtrending at 38.1 suspect due to hypertension EKG normal sinus rhythm without territorial ST/T wave changes No signs of ACS on admission #Hypokalemia, resolved 2.9 on admission, repleted, trended - may have been due to poor oral intake at home - today K was 3.5 #Hx H. pylori infection #Hx gastritis With history of candidiasis 02/2023. Gastritis was noted. Biopsies consist ent with severe chronic gastritis, intestinal metaplasia negative for dysplasia, H. pylori was positive. - Completed a course of both antibiotics with antifungal for associated abby. Completed triple antibiotic therapy this past month - Continue home famotidine and PPI #Hyperlipidemia Continue home statin #COPD Continue Breo Continue [facility] pulmonary follow-up DVT prophylaxis: Lovenox Admission and Anticipated Discharge Date Admission Date: June 04, 2023 Supervising Physician Co-Signing Physician Notes Attending Physician Supervision Note: I independently interviewed and examined the patient and verified the frausto history and physical, reviewed labs and image studies and agree with findings and care plan noted above. SUZY - creatinine worsened over 24 hours in setting of accelerated hypertensive response, underlying scleroderma and systolic cardiac dysfunction. no sign of infection. -concern of Scleroderma renal crisis -UA - proteinuria improved. Renal US, duplex - normal. -Creatinine stable. -continue captopril to promote renal perfusion. continue blood pressure control with nifedipine. Hypertensive emergency - in setting of scleroderma. On nifedipine and losartan at home -Losartan switched to captopril on admission -continue nifedipine. -continue prn labetolol dose. CMP - no concern of volume overload. Anticipate d/c home in am if BP and renal function stays stable. Subjective Pt is a 78 yo female with a past medical history of scleroderma, interstitial adán ng disease, Takotsubo cardiomyopathy, mild CAD, and hypertension who presents to the hospital on 06/03 from the Rheumatology office for HTN emergency. Today, pt states she feels "alright." She states she did not sleep as well last night since she had to get up twice to pee. Otherwise, no pains anywhere, no nausea or vomiting, no diarrhea, no chest pain, no SOB. No headache. She states she feels overall a bit less weak today than when she initially came in. No questions or complaints at this point in time. Review of Systems Review of Systems: Per HPI. Physical Exam Physical Exam: General:Alert and oriented, no acute distress, very pleasant HEENT: Normocephalic, moist oral mucosa, Cardio: Regular rate and rhythm, no murmur, Resp:Lungs clear to auscultation b/l, no wheezes or rhonchi, GI: Soft and nontender, nondistended, bowel sounds active Skin: Warm, pink, dry, Results & Data Results & Data Vital Signs (Past 12 Hours) Vital Signs Temp Pulse Pulse Resp BP BP Pulse Ox 06/06/23 03:58 37.0 C 06/06/23 03:00 91 H 19 95 06/06/23 03:00 156/80 H 06/06/23 02:30 97 H 22 06/06/23 01:06 54 L 18 154/9 H 98 06/05/23 23:04 94 H 06/05/23 23:00 06/05/23 23:00 94 H 166/83 H 06/05/23 20:55 86 22 178/104 H 95 06/05/23 19:52 88 20 186/103 H Pulse Ox O2 Del Method O2 Del Method 06/06/23 03:58 06/06/23 03:00 Room Air 06/06/23 03:00 06/06/23 02:30 06/06/23 01:06 Room Air 06/05/23 23:04 06/05/23 23:00 98 Room Air 06/05/23 23:00 06/05/23 20:55 Room Air 06/05/23 19:52 Resident Activity Tracking Resident Involvement: Resident Care Provided Care Provided: Adult Hospital Medicine
--- NOTE | 2023-06-06 07:06 | Ultrasound Report ---
RENAL ULTRASOUND HISTORY: Acute renal failure acute renal injury COMPARISON: CT abdomen and pelvis 05/21/2023 FINDINGS: Right kidney: 9.6 x 3.5 x 5.2 cm. No hydronephrosis. Normal corticomedullary differentiation and dinesh ical thickness. Left kidney: 10.5 x 4.7 x 5.0 cm. No hydronephrosis. There are a few subcentimeter left-sided renal c ysts measuring up to 7 mm. Normal corticomedullary differentiation and cortical thickness. Bladder: Trabeculation of the urinary bladder wall with globular morphology. The bilateral ureteral j ets were identified. IMPRESSION: No renal calculi or hydronephrosis. ACT 112: Negative or not required by law. Electronically signed by: Santiago Vasquez M.D. 06/06/2023 7:04 AM
--- NOTE | 2023-06-06 09:29 | Ultrasound Report ---
DOPPLER ULTRASOUND OF THE RENAL ARTERIES CLINICAL HISTORY: Hypertensive emergency. Acute renal injury. COMPARISON STUDY: Renal ultrasound dated 06/06/2023 TECHNIQUE: Doppler sonography of the renal arteries was performed to assess renal artery stenosis. Im ages are reviewed in the transverse and longitudinal planes. FINDINGS: The kidneys appear normal in size and echotexture. The right kidney measures 9.6 cm in length and the left kidney measures 10.7 cm in length. There is no hydronephrosis. On the right, intrarenal arterial resistive indices range from 0.61 to 0.70. Intrarenal arterial wave forms are normal with brisk upstrokes. The right renal arterial waveform is normal, and velocities wi thin the right renal artery measure up to 114 cm/sec. The right renal vein is patent. On the left, intrarenal arterial resistive indices range from 0.62 to 0.66. Intrarenal arterial wave forms are normal with brisk upstrokes. The left renal arterial waveform is normal, and velocities wit hin the left renal artery measure up to 106 cm/sec. The left renal vein is patent. The abdominal aorta is patent. Velocities within the abdominal aorta measure up to 104 cm/s. IMPRESSION: There is no sonographic evidence of renal artery stenosis. ACT 112: Negative or not required by law. Electronically signed by: Lambert Trent M.D. 06/06/2023 9:27 AM
[2023-06-06 19:00] LABS: Calcium 9.5 mg/dl (8.6-10.3)
[2023-06-06 19:05] LABS: BUN Creatinine Ratio 26.7 (10-20); Creatinine Clr Calc Pharmacy 24.1 ml/min; Est GFR (African American) 39.5 ml/min; Est GFR (Non-African American) 34.1 ml/min
[2023-06-07] MEDS: LABETALOL HCL IV 5 MG/ML 20ML IV STA (00:47)
[2023-06-07 05:35] LABS: Basophils # (auto) 0.09 K/uL (0.00-0.20); Eosinophils # (auto) 0.19 K/uL (0.00-0.50); Eosinophils % (auto) 2.2 %; Hematocrit (blood only) 32.1 % (37.0-47.0); Immature Granulocytes # (auto) 0.02 K/uL (0.01-0.20); Immature Granulocytes % (auto) 0.2 %; Lymphocytes # (auto) 1.74 K/uL (1.20-3.40); Mean Corpuscular Hemoglobin 26.7 pg (25.0-34.0); Mean Corpuscular Hgb Conc 34.3 g/dL (32.0-36.0); Mean Corpuscular Volume 77.9 fL (80.0-100.0); Mean Platelet Volume 9.4 fL (9.4-12.4); Monocytes # (auto) 0.75 K/uL (0.11-0.59); Monocytes % (auto) 8.6 %; Neutrophils # (auto) 5.91 K/uL (1.40-6.50); Platelet Count 187 K/uL (130-400); RDW Coefficient of Variation 16.2 % (11.5-14.5); RDW Standard Deviation 46.4 fL (36.4-46.3); Red Blood Count 4.12 M/uL (4.20-5.40)
[2023-06-07 05:58] LABS: BUN Creatinine Ratio 24.8 (10-20); Calcium 9.4 mg/dl (8.6-10.3); Creatinine Clr Calc Pharmacy 22.4 ml/min; Est GFR (African American) 36.2 ml/min; Est GFR (Non-African American) 31.3 ml/min; Potassium 3.7 mmol/L (3.5-5.1)
[2023-06-07] MEDS ORDERED: PHARMACIST DISCHARGE MED REC CONSULT PRN (06:54)
[2023-06-07] MEDS: OPTIRAY 320 125ml IV ONE (06:59)
--- NOTE | 2023-06-07 07:25 | CT Scan Report ---
UNENHANCED CT OF THE BRAIN; CT ANGIOGRAM OF THE BRAIN; CT ANGIOGRAM OF THE NECK CLINICAL HISTORY: Strokelike symptoms. COMPARISON STUDY: CT of the brain dated 06/04/2023. TECHNIQUE: Unenhanced axial CT scan of the brain is performed. Subsequently, following the IV adminis tration of 112 of [address] 320, CT angiogram of the head and neck was performed from the aortic arch t o the vertex. Images are reviewed in the axial, sagittal, and coronal planes. 3-D MIPS images are cre ated and assessed. IV contrast was administered without complication. All measurements were calculate d based on NASCET criteria. A dose lowering technique was utilized adhering to the principles of ALA RA. CT DOSE: 1045.89 mGy.cm FINDINGS: Brain parenchyma: There is a large hemorrhage centered in the right parieto-occipital region. This is best seen on axial image #17 and measures approximately 4.5 x 5 x 3.5 cm. There is significant surro unding edema with effacement of the overlying cortical sulci and minimal right to left midline shift along the posterior falx. There is intraventricular extension of hemorrhage, with blood products fill ing the posterior horn of the right lateral ventricle. There is also subdural extension of blood mellissa g the right tentorium cerebelli. There is also subarachnoid extension along the high right posterior convexity. There is no evidence of acute territorial ischemia by CT criteria. A potential 12 mm menin gioma in the posterior fossa on image #3 is unchanged. There is age-related involutional change notin g advanced subcortical and periventricular microangiopathic disease. The ventricles, sulci, and ciste rns are prominent secondary to involutional change. Thoracic aorta: Visualized portions of the thoracic aorta are normal in caliber. The aortic arch demo nstrates bovine variant anatomy. Right carotid arterial system: The right common carotid artery is widely patent, as are the right int ernal and external carotid arteries. Left carotid arterial system: The left common carotid artery is widely patent, as are the left civil engineering intern al and external carotid arteries. Vertebral arteries: The vertebral arteries are widely patent bilaterally noting mild right-sided romario nance. Subclavian arteries: Widely patent bilaterally. Intracranial vasculature: The internal carotid arteries are patent at the skull base, as are the ante rior and middle cerebral arteries bilaterally. The vertebrobasilar system and posterior cerebral micheline karina are widely patent. The right vertebral artery is dominant. There is no aneurysm, high-grade sten osis, or focal vessel cut off seen throughout the intracranial circulation. Jugular veins: Patent bilaterally. Dural sinuses: Patent. Lung apices: Partially visualized upper lobe lung parenchyma appears clear. Soft tissues: The visualized pharyngeal soft tissues are normal in appearance noting angiographic pha se technique. The oropharyngeal airway appears widely patent. The salivary and thyroid glands are nor mal in appearance. No cervical lymphadenopathy is seen. Skeletal structures: The skeletal structures are osteopenic. The calvarium appears intact. The cervic al spine is maintained noting multilevel spondylosis. Orbits: The bony orbits are intact. Orbital contents are normal as visualized. Sinuses and mastoids: The paranasal sinuses are clear. There are bilateral mastoid effusions. IMPRESSION: 1. There is a large parenchymal hematoma centered in the posterior right parieto-occipital cortex wit h significant surrounding edema and minimal right to left midline shift. 2. There is intraventricular and subarachnoid extension as above. 3. There is also subdural extension along the right tentorium cerebelli. 4. Unremarkable CT angiogram of the brain. 5. Unremarkable CT angiogram of the neck. Findings were reported to Dr. Rios at the time of interpretation. ACT 112: Negative or not required by law. Electronically signed by: Lambert Trent M.D. 06/07/2023 7:22 AM
[2023-06-07] MEDS ORDERED: 1.2 MICRON FILTER 1 EACH IV ONE (07:47)
[2023-06-07] MEDS ORDERED: STAT IV Infusion **Titration per Protocol STA (08:05)
[2023-06-07] MEDS: hydrALAZINE HCL 20 MG/ML VIAL IV STA (08:08)
[2023-06-07] MEDS: hydrALAZINE HCL 20 MG/ML VIAL ONE (08:09)
[2023-06-07] MEDS: niCARdipine 25 MG in SODIUM CHLORIDE 0.9% 240 ML IV SCH (08:11)
[2023-06-07] MEDS: MANNITOL IV STA (08:14)
[2023-06-07] MEDS: MANNITOL 25% 12.5 GM/50 ML VIAL IV ONE (08:30)
[2023-06-07] MEDS: MANNITOL 20% 100GM/500 ML BAG IV ONE (08:30)
--- NOTE | 2023-06-07 09:27 | Critical Care Consultation ---
Date of Consultation June 07, 2023 Assessment & Plan (1) Intracranial hemorrhage: (2) Subarachnoid hemorrhage: (3) Midline shift of brain due to hematoma: (4) Interstitial lung disease: (5) Hypertensive emergency: Plan 78-year-old female with systemic sclerosis who was admitted to the hospital due to hypertensive urgency and started on captopril. This morning she had an acute change in her mental status with her last known normal time of approximately 5:[address] head revealed an extensive intracranial hemorrhage with subarachnoid extension. Midline shift was noted as well. She has had worsening mental status. Nicardipine infusion was started and family has been updated. Neurologic: Patient with extensive intracranial hemorrhage with subarachnoid extension. Patient currently on nicardipine infusion with goal systolic blood pressures of 140. [facility] was contacted for transfer to their neuro ICU. Patient unlikely to have meaningful recovery given the extensive amount of intracranial hemorrhage and subarachnoid extension noted. Family is aware and at this time would like to focus on comfort measures. Will hold on transfer and escalation of care Pulmonary: Oxygen requirements are minimal at this time, but patient will unlikely be able to protect her airway. Patient is now a DNI per family request. She does have a history of pulmonary fibrosis related to systemic sclerosis, but does not require any supplemental oxygen. Family currently deciding goals of care. Cardiovascular: Nicardipine infusion to help control blood pressure at this time and maintain systolic blood pressures under 160. Gastrointestinal: Maintain n.p.o. status at this time. Renal: Patient with history of CKD stage III due to scleroderma. She is profoundly hypertensive and currently on nicardipine infusion. Infectious disease: No issues. Hematologic: Patient with mild microcytic anemia. Platelet counts and INR unremarkable. Endocrine: No current issues. Lines and tubes: Peripheral IVs and Bazzi catheter in place. VTE prophylaxis: SCDs CODE STATUS: Family at bedside: 2 daughters at bedside have been extensively updated. As noted above, family understanding that the patient has had a catastrophic intracranial hemorrhage and would like to pursue comfort measures. Palliative care consult has been placed. They would like to hold on opiates or benzodiazepines at this time until the rest of the family has arrived. Disposition: ICU I have personally spent 68 minutes of critical care time in the direct management of this patient. This is a life/limb threatening event. This includes time spent evaluating patient, direct bedside care, chart review, placing orders, interpretation of diagnostic studies, discussion with consultants, patient, and family members, as well as other required patient management activities. This time is exclusive of all separately billable procedures, and teaching time and separate from and in addition to any other critical care service time. Thank you for allowing us to participate in the care of this patient. History of Present Illness Reason for Consultation: Massive intracranial hemorrhage with subarachnoid extension Attending Physician: Anum Villar MD History of Present Illness 78-year-old female with a history of systemic sclerosis who was evaluated by rheumatology in the outpatient setting and found to be extremely hypertensive. She was told to come to the ER and has been hospitalized for the past 2 days. Around 630 this morning, the patient had a significant change in her mental status and had a flaccid left upper extremity. She does withdraw to painful stimuli, but otherwise does not do anything meaningful at this time. A stat CT head was obtained which revealed a large parenchymal hematoma in the posterior right parietal occipital cortex with significant surrounding edema and right to left midline shift. Subarachnoid extension was noted. Patient's systolic blood pressures were noted to be in the 270s. She was given 5 mg of IV labetalol, 20 mg of IV hydralazine and started on nicardipine infusion. Systolic blood pressures are currently 149/68. Family was alerted and 2 of the patient's daughters are currently at bedside. [facility] was also contacted for potential transfer to the neurosurgical service. They have accepted the patient for transfer, but family is currently trying to determine whether they would like to proceed with aggressive measures or focus on comfort measures given her significant findings on CT head. Allergies Allergy/AdvReac Type Severity Reaction Status Date / Time amlodipine [From Deng] Allergy Rash Verified 06/04/23 12:48 olmesartan [From Benicar] Allergy Rash Verified 06/04/23 12:48 Home Medications Medication Instructions Recorded Confirmed Type ascorbic acid (vitamin C) 1,000 mg 1 g PO QAM 02/01/23 06/04/23 History tablet (Vitamin C) aspirin 81 mg capsule 81 mg PO QAM 02/01/23 06/04/23 History atorvastatin 20 mg tablet 20 mg PO Q2D 02/01/23 06/04/23 History coenzyme Q10 100 mg capsule (Co 100 mg PO QAM 02/01/23 06/04/23 History Q-10) fluticasone furoate 100 1 inh inhalation QAM 02/01/23 06/04/23 History mcg-vilanterol 25 mcg/dose inhalation powder (Breo Ellipta) losartan 25 mg tablet 25 mg PO QAM 02/01/23 06/04/23 History multivitamin 1 tab PO QAM 02/01/23 06/04/23 History nifedipine 30 mg tablet,extended 30 mg PO QAM 02/01/23 06/04/23 History release esomeprazole magnesium 40 mg 40 mg PO DAILY #90 caps 05/17/23 06/04/23 Rx capsule,delayed release sucralfate 100 mg/mL oral 10 ml PO QID #420 mL 05/21/23 06/04/23 Rx suspension (Carafate) Patient History Medical History (Updated 06/07/23 @ 09:24 by Walter Walls MD) Midline shift of brain due to hematoma Subarachnoid hemorrhage Intracranial hemorrhage Chronic obstructive pulmonary disease Hyperlipidemia Scleroderma Interstitial lung disease History of anxiety Asthma Hypertension Surgical History Hx of cardiac cath felt weak at home-taken by ambulance to [facility], no stents placed>"no cardiac findings, it was due to stress"; f/u [facility] cardio at Hx of colonoscopy Social History Smoking Status: Never smoker Second Hand Exposure: Yes (hx in the workplace); Do You Dip or Chew Tobacco: No; Hx Alcohol Use: No Hx Substance Use: No Preferred Language: Zimbabwean Communication Ability: Effective Community Living Specialist Required: No Beliefs That Will Affect Care: Mormonism Current Living Situation: Family Current Living Situation Comment: lives with daughter Other Information That Helps Us Care for You: No Feels Safe at Home: Yes Safety Concerns: Feels Safe At This Time Assistive Devices: Glasses Review of Systems Review of Systems: Unobtainable due to reduced consciousness Physical Exam Physical Exam: Constitutional: Patient is minimally responsive. Spontaneously moves her right upper extremity. Eyes: Pupils are dilated, but minimally reactive to light. Ears nose, mouth and throat: Mallampati class 1. Small oral aperture. Neck: Trachea is midline. Visual inspection is normal. Respiratory: Clear to auscultation bilaterally. No use of accessory muscles. No significant clubbing noted. Cardiovascular: Regular rate and rhythm. No murmurs. No edema. Gastrointestinal: Normal bowel sounds, soft, nontender and nondistended. No hepatosplenomegaly noted. Musculoskeletal: No cyanosis. Patient is able to move all extremities. Strength is 5 out of 5 in the upper and lower extremities. Skin: No rashes, warm dry and intact. Neurologic: Flaccid paralysis of the right upper extremity. Spontaneously moving left upper extremity. GCS of 8. Psychiatric: Unable to assess. Results & Data Results & Data Vital Signs (Past 12 Hours) Vital Signs Temp Pulse Pulse Resp BP BP BP 06/07/23 08:45 98 H 23 155/85 H 06/07/23 08:37 102 H 24 157/68 H 06/07/23 08:34 106 H 23 175/81 H 06/07/23 08:32 96 H 21 163/68 H 06/07/23 08:30 96 H 21 154/68 H 06/07/23 08:30 103 H 154/68 H 06/07/23 08:28 110 H 21 164/83 H 06/07/23 08:18 105 H 22 241/119 H 06/07/23 08:15 72 23 250/132 H 06/07/23 08:10 72 23 270/143 H 06/07/23 08:02 106 H 20 263/154 H 06/07/23 07:49 83 244/131 H 06/07/23 07:37 79 23 244/131 H 06/07/23 07:23 90 22 264/122 H 06/07/23 07:20 88 21 264/122 H 06/07/23 07:16 86 23 247/123 H 06/07/23 06:55 252/126 H 06/07/23 06:49 98 H 252/126 H 06/07/23 03:08 36.9 C 86 18 178/83 H 06/07/23 01:40 74 196/78 H 06/07/23 00:47 77 188/79 H 06/07/23 00:31 77 196/82 H 06/07/23 00:06 88 187/90 H 06/06/23 22:58 36.9 C 87 20 187/90 H 06/06/23 22:00 92 H Pulse Ox O2 Del Method 06/07/23 08:45 97 Room Air 06/07/23 08:37 97 Room Air 06/07/23 08:34 96 Room Air 06/07/23 08:32 96 Room Air 06/07/23 08:30 96 Room Air 06/07/23 08:30 06/07/23 08:28 96 Room Air 06/07/23 08:18 97 Room Air 06/07/23 08:15 98 Room Air 06/07/23 08:10 97 Room Air 06/07/23 08:02 98 Room Air 06/07/23 07:49 06/07/23 07:37 100 Room Air 06/07/23 07:23 96 Room Air 06/07/23 07:20 100 Room Air 06/07/23 07:16 86 L Room Air 06/07/23 06:55 06/07/23 06:49 93 Room Air 06/07/23 03:08 94 Room Air 06/07/23 01:40 06/07/23 00:47 06/07/23 00:31 06/07/23 00:06 06/06/23 22:58 97 Room Air 06/06/23 22:00 Coding Level of Care Code 01308 CRITICAL CARE 1ST 30-74M Diagnoses Intracranial hemorrhage I62.9 Subarachnoid hemorrhage I60.9 Midline shift of brain due to hematoma G93.89; S06.2X0S Interstitial lung disease J84.9 Hypertensive emergency I16.1
--- NOTE | 2023-06-07 10:00 | Hospitalist Progress Note ---
Date of Service June 07, 2023 Assessment & Plan (1) Hypertensive emergency: (2) Takotsubo cardiomyopathy: (3) Mild CAD: (4) Scleroderma: (5) Meningioma: Plan Pt is a 78 yo female with a past medical history of scleroderma, interstitial lung disease, Takotsubo cardiomyopathy, mild CAD, and hypertension who presents to the hospital on 06/03 from the Rheumatology office for HTN emergency, hospital course complicated by large hemorrhagic stroke on 06/06. #Acute hemorrhagic stroke - Last known well; 5:30 am 06/06 when bathing had no neuro deficits and was responding appropriately - stroke alert called around 6:50 am 06/06 due to L facial droop, slurred speech, and flaccid L arm and L leg - CT head showed large R parieto-occipital hemorrhage, 51.8 mm A-P dimension vs 32.5 mm left to right at largest - started on [place]ardip[place] [facility] [place], systolic goal <160 #Hypertensive emergency - presented with BP 240s systolic and urine + protein from rheum office - question for concern of scleroderma renal crisis so losartan was switched to captopril on 06/04 - continued oral home nifedipine and s/p 2 labetolol 10 mg doses in the ER - yesterday BP average 150-160s/90s, overnight erik to 200s+ systolic again - TID captopril 6.25 dosing started yesterday with IV labetolol prn for systolic >180 - 2 doses IV labetolol given overnight for increasing pressures, and 1 extra dose captopril at 2 am - BP at last known well was 178 systolic, when stroke alert called was 252/126 - see above for current BP management #Deconditioning, - noted to have 1 week of weakness and issues with poor appetite - will trial marinol for appetite stim - orthostatics wnl #Hx of Scleroderma Follows with [facility] rheumatology; has had progressively increasing blood pressure as outpatient, 246 systolic and outpatient management. Concern for scleroderma renal crisis. UA with 2+ protein, creatinine is not elevated. On referral recommended peripheral smear for schistocytes/LDH/haptoglobin levels to evaluate for Maha, switching from ARB to LUKAS specifically captopril every 6 hours titrated to response, and screening with hepatitis B/C for future CellCept inclusion. CXR: No acute findings Does not currently appear to be in a renal crisis. Blood smear is pending as above; she does not have acute anemia or thrombocytopenia Losartan switched to captopril as noted above #Meningioma - no focal neuro deficits noted on admission CThead: Possible small posterior fossa meningioma, no acute findings. <1.2cm extraaxial lesion?meningioma - should get MRI once discharged for further evaluation of this #Hx of Takotsubo cardiomyopathy: #CAD Takotsubo cardiomyopathy EF 30-35% in 2021, cath without significant ischemic changes although? LV thrombus and was treated with a course of Eliquis; follow- up MRI with no evidence of LV thrombus and cardiomyopathy improved Chronic mild troponin elevation, 41 on admission repeat downtrending at 38.1 suspect due to hypertension EKG normal sinus rhythm without territorial ST/T wave changes No signs of ACS on admission #Hypokalemia, resolved 2.9 on admission, repleted, trended - may have been due to poor oral intake at home - today K was 3.7 #Hx H. pylori infection #Hx gastritis With history of candidiasis 02/2023. Gastritis was noted. Biopsies consistent with severe chronic gastritis, intestinal metaplasia negative for dysplasia, H. pylori was positive. - Completed a course of both antibiotics with antifungal for associated abby. Completed triple antibiotic therapy this past month - Continue home famotidine and PPI #Hyperlipidemia Continue home statin #COPD Continue Breo [place] [facility] [place] DVT prophylaxis: none Admission and Anticipated Discharge Date Admission Date: June 04, 2023 Supervising Physician Co-Signing Physician Notes Attending Physician Supervision Note: I independently interviewed and examined the patient and verified the frausto history and physical, reviewed labs and image studies and agree with findings and care plan noted above. Acute hemorrhagic stroke with midline shift - 06/07/23. Patient not oriented. -large parenchymal hematoma centered in the posterior right parieto-occipital cortex with significant surrounding edema and minimal right to left midline shift. Extension in surrounding structures. -Transfer to tertiary care arranged but after discussion with family by ICU team regarding grave prognosis - decision make to transition to comfort care. Hypertensive emergency - in setting of scleroderma. Was on nifedipine and losartan at home. Losartan switched to captopril on admission -Now on comfort care. SUZY with underlying scleroderma and systolic cardiac dysfunction. CMP -now on comfort care Subjective Today, stroke alert was called around 6:50 am. Spoke to nurse. Pt last known well was 5:30 am when she got bathed. She was alert and oriented with no apparent neuro deficits. Seen around 6:40 and at the time at L facial droop, slurred speech, altered mental status, and L flaccid paralysis of upper and lower extremity. She was taken for CT immediately and family was contacted. I saw the pt in the ICU later this morning with daughters present. Pt did not respond to me or follow commands, she swings R arm around at times. I filled the daughters in about the events of this morning and answered any questions. Will continue to check in throughout today. Spoke to [facility] for initial plan for [place] [facility] [place] Indra Luc[place]. They are willing to accept for further tx but family decided to go to comfort care DNR/DNI and not transfer at this point in time. Review of Systems Review of Systems: Per HPI. Physical Exam Physical Exam: General:Awake but mumbles incoherently, gaze does not track Cardio: Regular rhythm, tachycardic Resp:Lungs clear to auscultation b/l, no wheezes or rhonchi, GI: Soft, bowel sounds active Neuro: Gaze does track, complete flaccid paralysis of L arm and leg, slight L facial droop Skin: Warm, dry Results & Data Results & Data Vital Signs (Past 12 Hours) Vital Signs Temp Pulse Pulse Resp BP BP BP 06/07/23 09:45 105 H 21 140/67 06/07/23 09:30 108 H 25 H 147/63 H 06/07/23 09:15 110 H 24 149/68 H 06/07/23 09:00 100 H 23 149/68 H 06/07/23 08:45 98 H 23 155/85 H 06/07/23 08:37 102 H 24 157/68 H 06/07/23 08:34 106 H 23 175/81 H 06/07/23 08:32 96 H 21 163/68 H 06/07/23 08:30 96 H 21 154/68 H 06/07/23 08:30 103 H 154/68 H 06/07/23 08:28 110 H 21 164/83 H 06/07/23 08:18 105 H 22 241/119 H 06/07/23 08:15 72 23 250/132 H 06/07/23 08:10 72 23 270/143 H 06/07/23 08:02 106 H 20 263/154 H 06/07/23 07:49 83 244/131 H 06/07/23 07:48 36.8 C 06/07/23 07:37 79 23 244/131 H 06/07/23 07:23 90 22 264/122 H 06/07/23 07:20 88 21 264/122 H 06/07/23 07:16 86 23 247/123 H 06/07/23 06:55 252/126 H 06/07/23 06:49 98 H 252/126 H 06/07/23 03:08 36.9 C 86 18 178/83 H 06/07/23 01:40 74 196/78 H 06/07/23 00:47 77 188/79 H 06/07/23 00:31 77 196/82 H 06/07/23 00:06 88 187/90 H 06/06/23 22:58 36.9 C 87 20 187/90 H 06/06/23 22:00 92 H Pulse Ox O2 Del Method 06/07/23 09:45 97 Room Air 06/07/23 09:30 96 Room Air 06/07/23 09:15 97 Room Air 06/07/23 09:00 96 Room Air 06/07/23 08:45 97 Room Air 06/07/23 08:37 97 Room Air 06/07/23 08:34 96 Room Air 06/07/23 08:32 96 Room Air 06/07/23 08:30 96 Room Air 06/07/23 08:30 06/07/23 08:28 96 Room Air 06/07/23 08:18 97 Room Air 06/07/23 08:15 98 Room Air 06/07/23 08:10 97 Room Air 06/07/23 08:02 98 Room Air 06/07/23 07:49 06/07/23 07:48 06/07/23 07:37 100 Room Air 06/07/23 07:23 96 Room Air 06/07/23 07:20 100 Room Air 06/07/23 07:16 86 L Room Air 06/07/23 06:55 06/07/23 06:49 93 Room Air 06/07/23 03:08 94 Room Air 06/07/23 01:40 06/07/23 00:47 06/07/23 00:31 06/07/23 00:06 06/06/23 22:58 97 Room Air 06/06/23 22:00 Resident Activity Tracking Resident Involvement: Resident Care Provided Care Provided: Adult Hospital Medicine
--- NOTE | 2023-06-07 10:20 | Palliative Care Consultation ---
Date of Consultation June 07, 2023 Assessment & Plan (1) Dyspnea and respiratory abnormalities: Begin low dose dilaudid infusion 0.1mg per hour with 0.2mg prn q15min [employer] orders written (2) Altered mental status: Altered mental status type: coma Coma depth: unspecified coma depth Qualified Code(s): R40.20 - Unspecified coma (3) Unconscious: (4) Weakness generalized: (5) Advanced care planning/counseling discussion: Face to face ACP with family at bedside x 40min they are aware of her prognosis and that she will not recover to [employer] baseline they share she has been steadily declining for some time: less strength, more SOB, weaker, more fatigued and seemed more withdrawn/quiet they have notified their family, 2 remaining siblings are en route They would like a comfort plan of care. they are aware her dying time is here and anticipated survival is likely hours to days. we briefly spoke about [employer] in hospital vs home with hospice if being home was of great import. they note if she was able she would have preferred to in her home and not in hospital setting but also comprehend she is too sick today for transfer to be considered. we agreed to initiate [employer] and see how she does thru the weekend. She is agitated, tachycardic and dyspneic so we will initiate low dose dilaudid infusion for comfort, ativan as needed and will dc nicardipine once she is more comfortable. we spoke about changes people experience at EOL: Discussed changes pt may move through in the dying process including but not limited to sleeping more, disorientation when awake, restlessness, diminished senses/inability to respond to stimulus although ability to be aware of them remains intact longer, changes in body temperatures, skin changes/mottling/cyanosis, respiratory pattern changes, oral secretions. Family verbalized understanding. The goal is to assure a peaceful . (6) Palliative care by specialist: Met with pt family. Provided overview of Palliative Medicine, a subspecialty that provides specialized medical care for people living with a serious illness by offering a focus on quality of life. Palliative Medicine is often conflated with hospice: I advised patient/family that Palliative and hospice can be partners but we are not the same. It is important to understand the difference so that we may be informed, and not afraid. Palliative Medicine works to improve QOL through reduction of symptom burden/more control over their illness, for both the patient and family. Palliative medicine clinicians are board certified, specially-trained and another member of the patient's medical care team. We often provide an extra layer of support because our care is based on the needs of the patient, not the prognosis; as such, it's appropriate at any age/advancing stage of a serious illness and can be provided along with curative treatment. Palliative Medicine clinicians are also trained in advanced communication methodologies, to facilitate complex discussions about advanced illness planning, which are needed to help assure that the treatment choices match the patient's goals, aka delivering Goal Concordant care. Finally, we dis cussed that hospice is a visiting nurse service that focuses on care delivered at the very end of life for patients with terminal illness, with life expectancy less than 6 month. (7) Midline shift of brain due to hematoma: (8) Subarachnoid hemorrhage: (9) Intracranial hemorrhage: (10) Scleroderma: (11) Takotsubo cardiomyopathy: (12) Interstitial lung disease: Plan See above [employer]/orders written Thank you for allowing us to participate in the ongoing care of this patient. Please don't hesitate to call or page with any additional concerns. Dr. Lanie Suarez DNP Director, Palliative Care History of Present Illness Reason for Consultation: massive ICH Attending Physician: Anum Villar MD History of Present Illness 78yo female admitted with Intracranial hemorrhage, Subarachnoid hemorrhage, Midline shift of brain due to hematoma, Interstitial lung disease, Hypertensive emergency. Edith is a 79yo female who was admitted 06/04/23. She has known systemic sclerosis. Presented with hypertensive urgency and started on captopril. Her BP was noted to be high at [facility] appt with Dr. Harrison: initial was 246 systolic and repeat testing was 239/131. She was sent to ED from clinic. PMH: scleroderma, interstitial lung disease, Takotsubo cardiomyopathy/EF 30-35% in 2021, mild CAD, and hypertension Early this morning she had acute AMS and stat CT head revealed an extensive intracranial hemorrhage with subarachnoid extension. Midline shift was noted as well. Nicardipine infusion was started and family has been updated. Patient unlikely to have meaningful recovery given the extensive amount of intracranial hemorrhage and subarachnoid extension noted Edith is seen bedside with her daughters, one of whom is nurse. They share with me they desire a focus on comfort and have decided against transfer to [facility] for neurosurg eval bc they know Edith will never recover back to her [employer] baseline and was already declining. Allergies Allergy/AdvReac Type Severity Reaction Status Date / Time amlodipine [From Deng] Allergy Rash Verified 06/04/23 12:48 olmesartan [From Benicar] Allergy Rash Verified 06/04/23 12:48 Home Medications Medication Instructions Recorded Confirmed Type ascorbic acid (vitamin C) 1,000 mg 1 g PO QAM 02/01/23 06/04/23 History tablet (Vitamin C) aspirin 81 mg capsule 81 mg PO QAM 02/01/23 06/04/23 History atorvastatin 20 mg tablet 20 mg PO Q2D 02/01/23 06/04/23 History coenzyme Q10 100 mg capsule (Co 100 mg PO QAM 02/01/23 06/04/23 History Q-10) fluticasone furoate 100 1 inh inhalation QAM 02/01/23 06/04/23 History mcg-vilanterol 25 mcg/dose inhalation powder (Breo Ellipta) losartan 25 mg tablet 25 mg PO QAM 02/01/23 06/04/23 History multivitamin 1 tab PO QAM 02/01/23 06/04/23 History nifedipine 30 mg tablet,extended 30 mg PO QAM 02/01/23 06/04/23 History release esomeprazole magnesium 40 mg 40 mg PO DAILY #90 caps 05/17/23 06/04/23 Rx capsule,delayed release sucralfate 100 mg/mL oral 10 ml PO QID #420 mL 05/21/23 06/04/23 Rx suspension (Carafate) Patient History Medical History (Updated 06/07/23 @ 12:38 by Lanie Suarez DNP) Palliative care by specialist Advanced care planning/counseling discussion Dyspnea and respiratory abnormalities Weakness generalized Unconscious Altered mental status Midline shift of brain due to hematoma Subarachnoid hemorrhage Intracranial hemorrhage Chronic obstructive pulmonary disease Hyperlipidemia Scleroderma Interstitial lung disease History of anxiety Asthma Hypertension Surgical History Hx of cardiac cath felt weak at home-taken by ambulance to [facility], no stents placed>"no cardiac findings, it was due to stress"; f/u [facility] cardio at Hx of colonoscopy Social History Smoking Status: Never smoker Second Hand Exposure: Yes (hx in the workplace); Do You Dip or Chew Tobacco: No; Hx Alcohol Use: No Hx Substance Use: No Preferred Language: Zimbabwean Communication Ability: Effective Cost Control Supervisor Required: No Beliefs That Will Affect Care: Anglican Current Living Situation: Family Current Living Situation Comment: lives with daughter Other Information That Helps Us Care for You: No Feels Safe at Home: Yes Safety Concerns: Feels Safe At This Time Assistive Devices: Glasses Review of Systems Review of Systems: Unobtainable due to reduced consciousness Physical Exam Constitutional: + ill appearing, + cachectic, + frail ap pearing, + in distress and + lethargic Eyes: + irregular pupils ENMT: dentition fair, MM dry Neck: tightened with sclerotic skin changes Respiratory: + respiratory distress, + labored breath ing, + uses accessory muscles and + tachypneic Auscultation: + crackles velcro like crackles bilat up to apices bilat Cardiovascular: Rate/Rhythm: + tachycardic Heart Sounds: + gallop Palpation: + heave Gastrointestinal (Abdomen): Inspection/Auscultation: + scaphoid Percussion/Palpation: abdomen soft Musculoskeletal: unable to assess, pt obtunded intermittent myoclonic spasms and jerks noted, pt is agitated Skin: tight atrophic skin, cool to touch/cold hands; dusky nailbeds. Neurologic: withdraws to pain Results & Data Vital Signs (Past 12 Hours) Vital Signs Temp Pulse Pulse Resp BP BP BP 06/07/23 10:00 105 H 25 H 145/65 H 06/07/23 09:45 105 H 21 140/67 06/07/23 09:30 108 H 25 H 147/63 H 06/07/23 09:15 110 H 24 149/68 H 06/07/23 09:00 100 H 23 149/68 H 06/07/23 08:45 98 H 23 155/85 H 06/07/23 08:37 102 H 24 157/68 H 06/07/23 08:34 106 H 23 175/81 H 06/07/23 08:32 96 H 21 163/68 H 06/07/23 08:30 96 H 21 154/68 H 06/07/23 08:30 103 H 154/68 H 06/07/23 08:28 110 H 21 164/83 H 06/07/23 08:18 105 H 22 241/119 H 06/07/23 08:15 72 23 250/132 H 06/07/23 08:10 72 23 270/143 H 06/07/23 08:02 106 H 20 263/154 H 06/07/23 07:49 83 244/131 H 06/07/23 07:48 36.8 C 06/07/23 07:37 79 23 244/131 H 06/07/23 07:23 90 22 264/122 H 06/07/23 07:20 88 21 264/122 H 06/07/23 07:16 86 23 247/123 H 06/07/23 06:55 252/126 H 06/07/23 06:49 98 H 252/126 H 06/07/23 03:08 36.9 C 86 18 178/83 H 06/07/23 01:40 74 196/78 H 06/07/23 00:47 77 188/79 H 06/07/23 00:31 77 196/82 H 06/07/23 00:06 88 187/90 H 06/06/23 22:58 36.9 C 87 20 187/90 H Pulse Ox O2 Del Method 06/07/23 10:00 98 Room Air 06/07/23 09:45 97 Room Air 06/07/23 09:30 96 Room Air 06/07/23 09:15 97 Room Air 06/07/23 09:00 96 Room Air 06/07/23 08:45 97 Room Air 06/07/23 08:37 97 Room Air 06/07/23 08:34 96 Room Air 06/07/23 08:32 96 Room Air 06/07/23 08:30 96 Room Air 06/07/23 08:30 06/07/23 08:28 96 Room Air 06/07/23 08:18 97 Room Air 06/07/23 08:15 98 Room Air 06/07/23 08:10 97 Room Air 06/07/23 08:02 98 Room Air 06/07/23 07:49 06/07/23 07:48 06/07/23 07:37 100 Room Air 06/07/23 07:23 96 Room Air 06/07/23 07:20 100 Room Air 06/07/23 07:16 86 L Room Air 06/07/23 06:55 06/07/23 06:49 93 Room Air 06/07/23 03:08 94 Room Air 06/07/23 01:40 06/07/23 00:47 06/07/23 00:31 06/07/23 00:06 06/06/23 22:58 97 Room Air Laboratory Results 06/07/23 06/07/23 06/06/23 Range/Units 08:40 04:46 18:15 WBC 8.70 (4.8-10.8) K/ul RBC 4.12 L (4.20-5.40) M/uL Hgb 11.0 L (12.0-16.0) g/dl Hct 32.1 L (37.0-47.0) % MCV 77.9 L (80.0-100.0) fL MCH 26.7 (25.0-34.0) pg MCHC 34.3 (32.0-36.0) g/dL RDW Std Deviation 46.4 H (36.4-46.3) fL RDW Coeff of Torsten 16.2 H (11.5-14.5) % Plt Count 187 (130-400) K/uL MPV 9.4 (9.4-12.4) fL Immature Gran % (Auto) 0.2 % Neut % (Auto) 68.0 % Lymph % (Auto) 20.0 % Elk % (Auto) 8.6 % Eos % (Auto) 2.2 % Baso % (Auto) 1.0 % Neut # (Auto) 5.91 (1.40-6.50) K/uL Lymph # (Auto) 1.74 (1.20-3.40) K/uL Elk # (Auto) 0.75 H (0.11-0.59) K/uL Eos # (Auto) 0.19 (0.00-0.50) K/uL Baso # (Auto) 0.09 (0.00-0.20) K/uL Immature Gran # (Auto) 0.02 (0.01-0.20) K/uL Peripher Smr Path Cons PT (9.0-12.0) Seconds INR (0.9-1.1) APTT (21-31) Seconds PTT Ratio Sodium 131 L 131 L (136-145) mmol/L Potassium 3.7 4.0 (3.5-5.1) mmol/L Chloride 94 L 93 L (98-107) mmol/L Carbon Dioxide 30 30 (21-32) mmol/L Anion Gap 7 8 (3-11) BUN 39 H 39 H (6-23) mg/dl Creatinine 1.57 H 1.46 H (0.6-1.2) mg/dl Est Cr Clr Drug Dosing 22.4 24.1 Est GFR ( Amer) 36.2 39.5 ml/min Est GFR (Non-Af Amer) 31.3 34.1 ml/min BUN/Creatinine Ratio 24.8 H 26.7 H (10-20) Glucose 146 H 171 H (70-99(Fasting)) mg/dl Calcium 9.4 9.5 (8.6-10.3) mg/dl Magnesium (1.7-2.4) mg/dl Total Bilirubin (0.2-1.0) mg/dl AST (13-39) U/L ALT (7-52) U/L Alkaline Phosphatase (34-104) U/L Troponin I High Sens (0-14) pg/ml Total Protein (6.0-8.3) gm/dl Albumin (3.4-5.0) gm/dl Globulin (2.5-4.0) gm/dl Albumin/Globulin Ratio (0.9-2) TSH (0.300-4.500) uIu/ml Urine Color Urine Appearance (Clear) Urine pH (4.5-7.5) Ur Specific [place] (1.000-1.030) Urine Protein (Negative) Urine Glucose (UA) (Negative) Urine Ketones (Negative) Urine Blood (Negative) Urine Nitrite (Negative) Urine Bilirubin (Negative) Urine Urobilinogen (Negative) Ur Leukocyte Esterase (Negative) Urine WBC (Auto) (0-5) /hpf Urine RBC (Auto) (0-4) /hpf U Hyaline Cast (Auto) (0-5) /lpf U Epithel Cells (Auto) (0-5) /lpf Urine Bacteria (Auto) (Negative) Ur Random Creatinine mg/dl U Random Total Protein (0-11.9) mg/dl Protein/Creatinin Ratio (0-0.2) Nasal Screen MRSA (PCR) Negative (Negative) 06/06/23 06/06/23 06/05/23 Range/Units 05:47 03:24 20:23 WBC 8.90 (4.8-10.8) K/ul RBC 4.39 (4.20-5.40) M/uL Hgb 11.6 L (12.0-16.0) g/dl Hct 34.5 L (37.0-47.0) % MCV 78.6 L (80.0-100.0) fL MCH 26.4 (25.0-34.0) pg MCHC 33.6 (32.0-36.0) g/dL RDW Std Deviation 46.1 (36.4-46.3) fL RDW Coeff of Torsten 16.1 H (11.5-14.5) % Plt Count 195 (130-400) K/uL MPV 9.3 L (9.4-12.4) fL Immature Gran % (Auto) 0.4 % Neut % (Auto) 68.3 % Lymph % (Auto) 20.6 % Elk % (Auto) 8.1 % Eos % (Auto) 1.8 % Baso % (Auto) 0.8 % Neut # (Auto) 6.08 (1.40-6.50) K/uL Lymph # (Auto) 1.83 (1.20-3.40) K/uL Elk # (Auto) 0.72 H (0.11-0.59) K/uL Eos # (Auto) 0.16 (0.00-0.50) K/uL Baso # (Auto) 0.07 (0.00-0.20) K/uL Immature Gran # (Auto) 0.04 (0.01-0.20) K/uL Peripher Smr Path Cons PT (9.0-12.0) Seconds INR (0.9-1.1) APTT (21-31) Seconds PTT Ratio Sodium 133 L 131 L (136-145) mmol/L Potassium 4.1 4.2 (3.5-5.1) mmol/L Chloride 96 L 95 L (98-107) mmol/L Carbon Dioxide 30 29 (21-32) mmol/L Anion Gap 7 7 (3-11) BUN 33 H 30 H (6-23) mg/dl Creatinine 1.56 H 1.59 H (0.6-1.2) mg/dl Est Cr Clr Drug Dosing 24.9 24.4 Est GFR ( Amer) 36.5 35.7 ml/min Est GFR (Non-Af Amer) 31.5 30.8 ml/min BUN/Creatinine Ratio 21.2 H 18.9 (10-20) Glucose 176 H 154 H (70-99(Fasting)) mg/dl Calcium 9.3 9.4 (8.6-10.3) mg/dl Magnesium (1.7-2.4) mg/dl Total Bilirubin (0.2-1.0) mg/dl AST (13-39) U/L ALT (7-52) U/L Alkaline Phosphatase (34-104) U/L Troponin I High Sens (0-14) pg/ml Total Protein (6.0-8.3) gm/dl Albumin (3.4-5.0) gm/dl Globulin (2.5-4.0) gm/dl Albumin/Globulin Ratio (0.9-2) TSH (0.300-4.500) uIu/ml Urine Color Yellow Urine Appearance Clear (Clear) Urine pH 7.5 (4.5-7.5) Ur Specific [place] 1.012 (1.000-1.030) Urine Protein 1+ H (Negative) Urine Glucose (UA) Trace H (Negative) Urine Ketones Negative (Negative) Urine Blood Negative (Negative) Urine Nitrite Negative (Negative) Urine Bilirubin Negative (Negative) Urine Urobilinogen Negative (Negative) Ur Leukocyte Esterase Negative (Negative) Urine WBC (Auto) 1-5 (0-5) /hpf Urine RBC (Auto) 0-4 (0-4) /hpf U Hyaline Cast (Auto) 0 (0-5) /lpf U Epithel Cells (Auto) 5-10 H (0-5) /lpf Urine Bacteria (Auto) Negative (Negative) Ur Random Creatinine 44.2 mg/dl U Random Total Protein 37.8 H (0-11.9) mg/dl Protein/Creatinin Ratio 0.9 H (0-0.2) Nasal Screen MRSA (PCR) (Negative) 06/05/23 06/05/23 06/05/23 Range/Units 20:18 16:50 03:34 WBC 8.63 (4.8-10.8) K/ul RBC 4.23 (4.20-5.40) M/uL Hgb 11.4 L (12.0-16.0) g/dl Hct 32.7 L (37.0-47.0) % MCV 77.3 L (80.0-100.0) fL MCH 27.0 (25.0-34.0) pg MCHC 34.9 (32.0-36.0) g/dL RDW Std Deviation 44.7 (36.4-46.3) fL RDW Coeff of Torsten 15.9 H (11.5-14.5) % Plt Count 181 (130-400) K/uL MPV 10.0 (9.4-12.4) fL Immature Gran % (Auto) 0.2 % Neut % (Auto) 68.2 % Lymph % (Auto) 20.2 % Elk % (Auto) 9.4 % Eos % (Auto) 1.3 % Baso % (Auto) 0.7 % Neut # (Auto) 5.89 (1.40-6.50) K/uL Lymph # (Auto) 1.74 (1.20-3.40) K/uL Elk # (Auto) 0.81 H (0.11-0.59) K/uL Eos # (Auto) 0.11 (0.00-0.50) K/uL Baso # (Auto) 0.06 (0.00-0.20) K/uL Immature Gran # (Auto) 0.02 (0.01-0.20) K/uL Peripher Smr Path Cons PT (9.0-12.0) Seconds INR (0.9-1.1) APTT (21-31) Seconds PTT Ratio Sodium 131 L 131 L (136-145) mmol/L Potassium 4.1 3.5 (3.5-5.1) mmol/L Chloride 95 L 94 L (98-107) mmol/L Carbon Dioxide 31 31 (21-32) mmol/L Anion Gap 5 6 (3-11) BUN 30 H 30 H (6-23) mg/dl Creatinine 1.48 H 1.26 H (0.6-1.2) mg/dl Est Cr Clr Drug Dosing 24.7 29.0 Est GFR ( Amer) 38.9 47.3 ml/min Est GFR (Non-Af Amer) 33.6 40.8 ml/min BUN/Creatinine Ratio 20.3 H 23.8 H (10-20) Glucose 157 H 154 H (70-99(Fasting)) mg/dl Calcium 9.4 9.2 (8.6-10.3) mg/dl Magnesium (1.7-2.4) mg/dl Total Bilirubin (0.2-1.0) mg/dl AST (13-39) U/L ALT (7-52) U/L Alkaline Phosphatase (34-104) U/L Troponin I High Sens (0-14) pg/ml Total Protein (6.0-8.3) gm/dl Albumin (3.4-5.0) gm/dl Globulin (2.5-4.0) gm/dl Albumin/Globulin Ratio (0.9-2) TSH (0.300-4.500) uIu/ml Urine Color Yellow Urine Appearance Clear (Clear) Urine pH 7.5 (4.5-7.5) Ur Specific [place] 1.008 (1.000-1.030) Urine Protein Trace H (Negative) Urine Glucose (UA) Trace H (Negative) Urine Ketones Negative (Negative) Urine Blood Trace H (Negative) Urine Nitrite Negative (Negative) Urine Bilirubin Negative (Negative) Urine Urobilinogen Negative (Negative) Ur Leukocyte Esterase Negative (Negative) Urine WBC (Auto) 1-5 (0-5) /hpf Urine RBC (Auto) 0-4 (0-4) /hpf U Hyaline Cast (Auto) 1-5 (0-5) /lpf U Epithel Cells (Auto) 5-10 H (0-5) /lpf Urine Bacteria (Auto) Negative (Negative) Ur Random Creatinine mg/dl U Random Total Protein (0-11.9) mg/dl Protein/Creatinin Ratio (0-0.2) Nasal Screen MRSA (PCR) (Negative) 06/04/23 06/04/23 06/04/23 Range/Units 22:26 16:55 14:59 WBC (4.8-10.8) K/ul RBC (4.20-5.40) M/uL Hgb (12.0-16.0) g/dl Hct (37.0-47.0) % MCV (80.0-100.0) fL MCH (25.0-34.0) pg MCHC (32.0-36.0) g/dL RDW Std Deviation (36.4-46.3) fL RDW Coeff of Torsten (11.5-14.5) % Plt Count (130-400) K/uL MPV (9.4-12.4) fL Immature Gran % (Auto) % Neut % (Auto) % Lymph % (Auto) % [place]k % (Auto) % Eos % (Auto) % Baso % (Auto) % Neut # (Auto) (1.40-6.50) K/uL Lymph # (Auto) (1.20-3.40) K/uL [place] # (Auto) (0.11-0.59) K/uL Eos # (Auto) (0.00-0.50) K/uL Baso # (Auto) (0.00-0.20) K/uL Immature Gran # (Auto) (0.01-0.20) K/uL Peripher Smr Path Cons Cancelled PT 11.2 (9.0-12.0) Seconds INR 1.0 (0.9-1.1) APTT 30 (21-31) Seconds PTT Ratio 1.1 Sodium 130 L 130 L (136-145) mmol/L Potassium 3.1 L 2.9 L (3.5-5.1) mmol/L Chloride 92 L 88 L (98-107) mmol/L Carbon Dioxide 29 34 H (21-32) mmol/L Anion Gap 9 8 (3-11) BUN 31 H 28 H (6-23) mg/dl Creatinine 1.19 1.09 (0.6-1.2) mg/dl Est Cr Clr Drug Dosing 30.8 Not Reportable Est GFR ( Amer) 50.6 56.3 ml/min Est GFR (Non-Af Amer) 43.7 48.6 ml/min BUN/Creatinine Ratio 26.1 H 25.7 H (10-20) Glucose 227 H 155 H (70-99(Fasting)) mg/dl Calcium 9.1 10.0 (8.6-10.3) mg/dl Magnesium 1.8 (1.7-2.4) mg/dl Total Bilirubin 1.2 H (0.2-1.0) mg/dl AST 24 (13-39) U/L ALT 15 (7-52) U/L Alkaline Phosphatase 91 (34-104) U/L Troponin I High Sens 38.1 H 41.0 H (0-14) pg/ml Total Protein 7.7 (6.0-8.3) gm/dl Albumin 4.2 (3.4-5.0) gm/dl Globulin 3.5 (2.5-4.0) gm/dl Albumin/Globulin Ratio 1.2 (0.9-2) TSH 2.780 (0.300-4.500) uIu/ml Urine Color Urine Appearance (Clear) Urine pH (4.5-7.5) Ur Specific [place] (1.000-1.030) Urine Protein (Negative) Urine Glucose (UA) (Negative) Urine Ketones (Negative) Urine Blood (Negative) Urine Nitrite (Negative) Urine Bilirubin (Negative) Urine Urobilinogen (Negative) Ur Leukocyte Esterase (Negative) Urine WBC (Auto) (0-5) /hpf Urine RBC (Auto) (0-4) /hpf U Hyaline Cast (Auto) (0-5) /lpf U Epithel Cells (Auto) (0-5) /lpf Urine Bacteria (Auto) (Negative) Ur Random Creatinine mg/dl U Random Total Protein (0-11.9) mg/dl Protein/Creatinin Ratio (0-0.2) Nasal Screen MRSA (PCR) (Negative) 06/04/23 06/04/23 Range/Units 14:59 14:58 WBC 11.36 H (4.8-10.8) K/ul RBC 5.22 (4.20-5.40) M/uL Hgb 13.5 (12.0-16.0) g/dl Hct 40.9 (37.0-47.0) % MCV 78.4 L (80.0-100.0) fL MCH 25.9 (25.0-34.0) pg MCHC 33.0 (32.0-36.0) g/dL RDW Std Deviation 43.8 (36.4-46.3) fL RDW Coeff of Torsten 15.5 H (11.5-14.5) % Plt Count 191 (130-400) K/uL MPV 9.8 (9.4-12.4) fL Immature Gran % (Auto) 0.4 % Neut % (Auto) 77.0 % Lymph % (Auto) 14.8 % [place]k % (Auto) 6.9 % Eos % (Auto) 0.4 % Baso % (Auto) 0.5 % Neut # (Auto) 8.75 H (1.40-6.50) K/uL Lymph # (Auto) 1.68 (1.20-3.40) K/uL [place] # (Auto) 0.78 H (0.11-0.59) K/uL Eos # (Auto) 0.04 (0.00-0.50) K/uL Baso # (Auto) 0.06 (0.00-0.20) K/uL Immature Gran # (Auto) 0.05 (0.01-0.20) K/uL Peripher Smr Path Cons PT (9.0-12.0) Seconds INR (0.9-1.1) APTT (21-31) Seconds PTT Ratio Sodium (136-145) mmol/L Potassium (3.5-5.1) mmol/L Chloride (98-107) mmol/L Carbon Dioxide (21-32) mmol/L Anion Gap (3-11) BUN (6-23) mg/dl Creatinine (0.6-1.2) mg/dl Est Cr Clr Drug Dosing Est GFR ( Amer) ml/min Est GFR (Non-Af Amer) ml/min BUN/Creatinine Ratio (10-20) Glucose (70-99(Fasting)) mg/dl Calcium (8.6-10.3) mg/dl Magnesium (1.7-2.4) mg/dl Total Bilirubin (0.2-1.0) mg/dl AST (13-39) U/L ALT (7-52) U/L Alkaline Phosphatase (34-104) U/L Troponin I High Sens (0-14) pg/ml Total Protein (6.0-8.3) gm/dl Albumin (3.4-5.0) gm/dl Globulin (2.5-4.0) gm/dl Albumin/Globulin Ratio (0.9-2) TSH (0.300-4.500) uIu/ml Urine Color Yellow Urine Appearance Clear (Clear) Urine pH 6.5 (4.5-7.5) Ur Specific [place] 1.012 (1.000-1.030) Urine Protein 2+ H (Negative) Urine Glucose (UA) Trace H (Negative) Urine Ketones Negative (Negative) Urine Blood 1+ H (Negative) Urine Nitrite Negative (Negative) Urine Bilirubin Negative (Negative) Urine Urobilinogen Negative (Negative) Ur Leukocyte Esterase Negative (Negative) Urine WBC (Auto) 1-5 (0-5) /hpf Urine RBC (Auto) 5-10 H (0-4) /hpf U Hyaline Cast (Auto) 1-5 (0-5) /lpf U Epithel Cells (Auto) 20-30 H (0-5) /lpf Urine Bacteria (Auto) Negative (Negative) Ur Random Creatinine mg/dl U Random Total Protein (0-11.9) mg/dl Protein/Creatinin Ratio (0-0.2) Nasal Screen MRSA (PCR) (Negative) Diagnostic Findings Laboratory Results WBC 8.70 K/ul (4.8-10.8) 06/07/23 04:46 RBC 4.12 M/uL (4.20-5.40) L 06/07/23 04:46 Hgb 11.0 g/dl (12.0-16.0) L 06/07/23 04:46 Hct 32.1 % (37.0-47.0) L 06/07/23 04:46 MCV 77.9 fL (80.0-100.0) L 06/07/23 04:46 MCH 26.7 pg (25.0-34.0) 06/07/23 04:46 MCHC 34.3 g/dL (32.0-36.0) 06/07/23 04:46 RDW Std Deviation 46.4 fL (36.4-46.3) H 06/07/23 04:46 RDW Coeff of Torsten 16.2 % (11.5-14.5) H 06/07/23 04:46 Plt Count 187 K/uL (130-400) 06/07/23 04:46 MPV 9.4 fL (9.4-12.4) 06/07/23 04:46 Immature Gran % (Auto) 0.2 % 06/07/23 04:46 Neut % (Auto) 68.0 % 06/07/23 04:46 Lymph % (Auto) 20.0 % 06/07/23 04:46 Elk % (Auto) 8.6 % 06/07/23 04:46 Eos % (Auto) 2.2 % 06/07/23 04:46 Baso % (Auto) 1.0 % 06/07/23 04:46 Neut # (Auto) 5.91 K/uL (1.40-6.50) 06/07/23 04:46 Lymph # (Auto) 1.74 K/uL (1.20-3.40) 06/07/23 04:46 Elk # (Auto) 0.75 K/uL (0.11-0.59) H 06/07/23 04:46 Eos # (Auto) 0.19 K/uL (0.00-0.50) 06/07/23 04:46 Baso # (Auto) 0.09 K/uL (0.00-0.20) 06/07/23 04:46 Immature Gran # (Auto) 0.02 K/uL (0.01-0.20) 06/07/23 04:46 Peripher Smr Path Cons 06/05/23 20:23 PT 11.2 Seconds (9.0-12.0) 06/04/23 14:59 INR 1.0 (0.9-1.1) 06/04/23 14:59 APTT 30 Seconds (21-31) 06/04/23 14:59 PTT Ratio 1.1 06/04/23 14:59 Sodium 131 mmol/L (136-145) L 06/07/23 04:46 Potassium 3.7 mmol/L (3.5-5.1) 06/07/23 04:46 Chloride 94 mmol/L (98-107) L 06/07/23 04:46 Carbon Dioxide 30 mmol/L (21-32) 06/07/23 04:46 Anion Gap 7 (3-11) 06/07/23 04:46 BUN 39 mg/dl (6-23) H 06/07/23 04:46 Creatinine 1.57 mg/dl (0.6-1.2) H 06/07/23 04:46 Est Cr Clr Drug Dosing 22.4 ml/min 06/07/23 04:46 Est GFR ( Amer) 36.2 ml/min 06/07/23 04:46 Est GFR (Non-Af Amer) 31.3 ml/min 06/07/23 04:46 BUN/Creatinine Ratio 24.8 (10-20) H 06/07/23 04:46 Glucose 146 mg/dl (70-99(Fasting)) H 06/07/23 04:46 Calcium 9.4 mg/dl (8.6-10.3) 06/07/23 04:46 Magnesium 1.8 mg/dl (1.7-2.4) 06/04/23 14:59 Total Bilirubin 1.2 mg/dl (0.2-1.0) H 06/04/23 14:59 AST 24 U/L (13-39) 06/04/23 14:59 ALT 15 U/L (7-52) 06/04/23 14:59 Alkaline Phosphatase 91 U/L (34-104) 06/04/23 14:59 Troponin I High Sens 38.1 pg/ml (0-14) H 06/04/23 16:55 Total Protein 7.7 gm/dl (6.0-8.3) 06/04/23 14:59 Albumin 4.2 gm/dl (3.4-5.0) 06/04/23 14:59 Globulin 3.5 gm/dl (2.5-4.0) 06/04/23 14:59 Albumin/Globulin Ratio 1.2 (0.9-2) 06/04/23 14:59 TSH 2.780 uIu/ml (0.300-4.500) 06/04/23 14:59 Urine Color Yellow 06/06/23 05:47 Urine Appearance Clear (Clear) 06/06/23 05:47 Urine pH 7.5 (4.5-7.5) 06/06/23 05:47 Ur Specific [place] 1.012 (1.000-1.030) 06/06/23 05:47 Urine Protein 1+ (Negative) H 06/06/23 05:47 Urine Glucose (UA) Trace (Negative) H 06/06/23 05:47 Urine Ketones Negative (Negative) 06/06/23 05:47 Urine Blood Negative (Negative) 06/06/23 05:47 Urine Nitrite Negative (Negative) 06/06/23 05:47 Urine Bilirubin Negative (Negative) 06/06/23 05:47 Urine Urobilinogen Negative (Negative) 06/06/23 05:47 Ur Leukocyte Esterase Negative (Negative) 06/06/23 05:47 Urine WBC (Auto) 1-5 /hpf (0-5) 06/06/23 05:47 Urine RBC (Auto) 0-4 /hpf (0-4) 06/06/23 05:47 U Hyaline Cast (Auto) 0 /lpf (0-5) 06/06/23 05:47 U Epithel Cells (Auto) 5-10 /lpf (0-5) H 06/06/23 05:47 Urine Bacteria (Auto) Negative (Negative) 06/06/23 05:47 Ur Random Creatinine 44.2 mg/dl 06/06/23 05:47 U Random Total Protein 37.8 mg/dl (0-11.9) H 06/06/23 05:47 Protein/Creatinin Ratio 0.9 (0-0.2) H 06/06/23 05:47 Nasal Screen MRSA (PCR) Negative (Negative) 06/07/23 08:40 Impressions Chest X-Ray 06/04/23 14:46 XR chest 1V portable CLINICAL HISTORY: Chest pain, nonspecific COMPARISON STUDY: Chest radiograph and chest CT May 21, 2023. FINDINGS: No pneumothorax or pleural effusion is present. Moderate cardiomegaly is unchanged. There is no evidence for pulmonary edema. Mild interstitial thickening is similar to prior exam. This is likely chronic. IMPRESSION: No acute cardiopulmonary findings. No significant change in appearance of the chest. ACT 112: Negative or not required by law. Electronically signed by: Ronald Braga M.D. 06/04/2023 3:44 PM Renal Artery Duplex 06/06/23 00:00 DOPPLER ULTRASOUND OF THE RENAL ARTERIES CLINICAL HISTORY: Hypertensive emergency. Acute renal injury. COMPARISON STUDY: Renal ultrasound dated 06/06/2023 TECHNIQUE: Doppler sonography of the renal arteries was performed to assess renal artery stenosis. Images are reviewed in the transverse and longitudinal planes. FINDINGS: The kidneys appear normal in size and echotexture. The right kidney measures 9.6 cm in length and the left kidney measures 10.7 cm in length. There is no hydronephrosis. On the right, intrarenal arterial resistive indices range from 0.61 to 0.70. Intrarenal arterial waveforms are normal with brisk upstrokes. The right renal arterial waveform is normal, and velocities within the right renal artery measure up to 114 cm/sec. The right renal vein is patent. On the left, intrarenal arterial resistive indices range from 0.62 to 0.66. Intrarenal arterial waveforms are normal with brisk upstrokes. The left renal arterial waveform is normal, and velocities within the left renal artery measure up to 106 cm/sec. The left renal vein is patent. The abdominal aorta is patent. Velocities within the abdominal aorta measure up to 104 cm/s. IMPRESSION: There is no sonographic evidence of renal artery stenosis. ACT 112: Negative or not required by law. Electronically signed by: Lambert Trent M.D. 06/06/2023 9:27 AM Renal Ultrasound 06/06/23 17:56 RENAL ULTRASOUND HISTORY: Acute renal failure acute renal injury COMPARISON: CT abdomen and pelvis 05/21/2023 FINDINGS: Right kidney: 9.6 x 3.5 x 5.2 cm. No hydronephrosis. Normal corticomedullary differentiation and cortical thickness. Left kidney: 10.5 x 4.7 x 5.0 cm. No hydronephrosis. There are a few subcentimeter left-sided renal cysts measuring up to 7 mm. Normal corticomedullary differentiation and cortical thickness. Bladder: Trabeculation of the urinary bladder wall with globular morphology. The bilateral ureteral jets were identified. IMPRESSION: No renal calculi or hydronephrosis. ACT 112: Negative or not required by law. Electronically signed by: Santiago Vasquez M.D. 06/06/2023 7:[address] 06/07/23 06:[address] OF THE BRAIN; CT ANGIOGRAM OF THE BRAIN; CT ANGIOGRAM OF THE NECK CLINICAL HISTORY: Strokelike symptoms. COMPARISON STUDY: CT of the brain dated 06/04/2023. TECHNIQUE: Unenhanced axial CT scan of the brain is performed. Subsequently, following the IV administration of 112 of Optiray 320, CT angiogram of the head and neck was performed from the aortic arch to the vertex. Images are reviewed in the axial, sagittal, and coronal planes. 3-D MIPS images are created and assessed. IV contrast was administered without complication. All measurements were calculated based on NASCET criteria. A dose lowering technique was utilized adhering to the principles of ALARA. CT DOSE: 1045.89 mGy.cm FINDINGS: Brain parenchyma: There is a large hemorrhage centered in the right parieto- occipital region. This is best seen on axial image #17 and measures approximately 4.5 x 5 x 3.5 cm. There is significant surrounding edema with effacement of the overlying cortical sulci and minimal right to left midline shift along the posterior falx. There is intraventricular extension of hemo rrhage, with blood products filling the posterior horn of the right lateral ventricle. There is also subdural extension of blood along the right tentorium cerebelli. There is also subarachnoid extension along the high right posterior convexity. There is no evidence of acute territorial ischemia by CT criteria. A potential 12 mm meningioma in the posterior fossa on image #3 is unchanged. There is age-related involutional change noting advanced subcortical and periventricular microangiopathic disease. The ventricles, sulci, and cisterns are prominent secondary to involutional change. Thoracic aorta: Visualized portions of the thoracic aorta are normal in caliber. The aortic arch demonstrates bovine variant anatomy. Right carotid arterial system: The right common carotid artery is widely patent, as are the right internal and external carotid arteries. Left carotid arterial system: The left common carotid artery is widely patent, as are the left internal and external carotid arteries. Vertebral arteries: The vertebral arteries are widely patent bilaterally noting mild right-sided dominance. Subclavian arteries: Widely patent bilaterally. Intracranial vasculature: The internal carotid arteries are patent at the skull base, as are the anterior and middle cerebral arteries bilaterally. The vertebrobasilar system and posterior cerebral arteries are widely patent. The right vertebral artery is dominant. There is no aneurysm, high-grade stenosis, or focal vessel cut off seen throughout the intracranial circulation. Jugular veins: Patent bilaterally. Dural sinuses: Patent. Lung apices: Partially visualized upper lobe lung parenchyma appears clear. Soft tissues: The visualized pharyngeal soft tissues are normal in appearance noting angiographic phase technique. The oropharyngeal airway appears widely patent. The salivary and thyroid glands are normal in appearance. No cervical lymphadenopathy is seen. Skeletal structures: The skeletal structures are osteopenic. The calvarium appears intact. The cervical spine is maintained noting multilevel spondylosis. Orbits: The bony orbits are intact. Orbital contents are normal as visualized. Sinuses and mastoids: The paranasal sinuses are clear. There are bilateral mastoid effusions. IMPRESSION: 1. There is a large parenchymal hematoma centered in the posterior right parieto-occipital cortex with significant surrounding edema and minimal right to left midline shift. 2. There is intraventricular and subarachnoid extension as above. 3. There is also subdural extension along the right tentorium cerebelli. 4. Unremarkable CT angiogram of the brain. 5. Unremarkable CT angiogram of the neck. Findings were reported to Dr. Rios at the time of interpretation. ACT 112: Negative or not required by law. Electronically signed by: Lambert Trent M.D. 06/07/2023 7:22 AM Head CTA 06/07/23 06:[address] OF THE BRAIN; CT ANGIOGRAM OF THE BRAIN; CT ANGIOGRAM OF THE NECK CLINICAL HISTORY: Strokelike symptoms. COMPARISON STUDY: CT of the brain dated 06/04/2023. TECHNIQUE: Unenhanced axial CT scan of the brain is performed. Subsequently, following the IV administration of 112 of Optiray 320, CT angiogram of the head and neck was performed from the aortic arch to the vertex. Images are reviewed in the axial, sagittal, and coronal planes. 3-D MIPS images are created and assessed. IV contrast was administered without complication. All measurements were calculated based on NASCET criteria. A dose lowering technique was utilized adhering to the principles of ALARA. CT DOSE: 1045.89 mGy.cm FINDINGS: Brain parenchyma: There is a large hemorrhage centered in the right parieto- occipital region. This is best seen on axial image #17 and measures approximately 4.5 x 5 x 3.5 cm. There is significant surrounding edema with effacement of the overlying cortical sulci and minimal right to left midline shift along the posterior falx. There is intraventricular extension of hemorrhage, with blood products filling the posterior horn of the right lateral ventricle. There is also subdural extension of blood along the right tentorium cerebelli. There is also subarachnoid extension along the high right posterior convexity. There is no evidence of acute territorial ischemia by CT criteria. A potential 12 mm meningioma in the posterior fossa on image #3 is unchanged. There is age-related involutional change noting advanced subcortical and periventricular microangiopathic disease. The ventricles, sulci, and cisterns are prominent secondary to involutional change. Thoracic aorta: Visualized portions of the thoracic aorta are normal in caliber. The aortic arch demonstrates bovine variant anatomy. Right carotid arterial system: The right common carotid artery is widely patent, as are the right internal and external carotid arteries. Left carotid arterial system: The left common carotid artery is widely patent, as are the left internal and external carotid arteries. Vertebral arteries: The vertebral arteries are widely patent bilaterally noting mild right-sided dominance. Subclavian arteries: Widely patent bilaterally. Intracranial vasculature: The internal carotid arteries are patent at the skull base, as are the anterior and middle cerebral arteries bilaterally. The vertebrobasilar system and posterior cerebral arteries are widely patent. The right vertebral artery is dominant. There is no aneurysm, high-grade stenosis, or focal vessel cut off seen throughout the intracranial circulation. Jugular veins: Patent bilaterally. Dural sinuses: Patent. Lung apices: Partially visualized upper lobe lung parenchyma appears clear. Soft tissues: The visualized pharyngeal soft tissues are normal in appearance noting angiographic phase technique. The oropharyngeal airway appears widely patent. The salivary and thyroid glands are normal in appearance. No cervical lymphadenopathy is seen. Skeletal structures: The skeletal structures are osteopenic. The calvarium appears intact. The cervical spine is maintained noting multilevel spondylosis. Orbits: The bony orbits are intact. Orbital contents are normal as visualized. Sinuses and mastoids: The paranasal sinuses are clear. There are bilateral mastoid effusions. IMPRESSION: 1. There is a large parenchymal hematoma centered in the posterior right parieto-occipital cortex with significant surrounding edema and minimal right to left midline shift. 2. There is intraventricular and subarachnoid extension as above. 3. There is also subdural extension along the right tentorium cerebelli. 4. Unremarkable CT angiogram of the brain. 5. Unremarkable CT angiogram of the neck. Findings were reported to Dr. Rios at the time of interpretation. ACT 112: Negative or not required by law. Electronically signed by: Lambert Trent M.D. 06/07/2023 7:22 AM Neck CTA 06/07/23 06:[address] OF THE BRAIN; CT ANGIOGRAM OF THE BRAIN; CT ANGIOGRAM OF THE NECK CLINICAL HISTORY: Strokelike symptoms. COMPARISON STUDY: CT of the brain dated 06/04/2023. TECHNIQUE: Unenhanced axial CT scan of the brain is performed. Subsequently, following the IV administration of 112 of Optiray 320, CT angiogram of the head and neck was performed from the aortic arch to the vertex. Images are reviewed in the axial, sagittal, and coronal planes. 3-D MIPS images are created and assessed. IV contrast was administered without complication. All measurements were calculated based on NASCET criteria. A dose lowering technique was utilized adhering to the principles of ALARA. CT DOSE: 1045.89 mGy.cm FINDINGS: Brain parenchyma: There is a large hemorrhage centered in the right parieto-occipital region. This is best seen on axial image #17 and measures approximately 4.5 x 5 x 3.5 cm. There is significant surrounding edema with effacement of the overlying cortical sulci and minimal right to left midline shift along the posterior falx. There is intraventricular extension of hemorrhage, with blood products filling the posterior horn of the right lateral ventricle. There is also subdural extension of blood along the right tentorium cerebelli. There is also subarachnoid extension along the high right posterior convexity. There is no evidence of acute territorial ischemia by CT criteria. A potential 12 mm meningioma in the posterior fossa on image #3 is unchanged. There is age-related involutional change noting advanced subcortical and periventricular microangiopathic disease. The ventricles, sulci, and cisterns are prominent secondary to involutional change. Thoracic aorta: Visualized portions of the thoracic aorta are normal in caliber. The aortic arch demonstrates bovine variant anatomy. Right carotid arterial system: The right common carotid artery is widely patent, as are the right internal and external carotid arteries. Left carotid arterial system: The left common carotid artery is widely patent, as are the left internal and external carotid arteries. Vertebral arteries: The vertebral arteries are widely patent bilaterally noting mild right-sided dominance. Subclavian arteries: Widely patent bilaterally. Intracranial vasculature: The internal carotid arteries are patent at the skull base, as are the anterior and middle cerebral arteries bilaterally. The vertebrobasilar system and posterior cerebral arteries are widely patent. The right vertebral artery is dominant. There is no aneurysm, high-grade stenosis, or focal vessel cut off seen throughout the intracranial circulation. Jugular veins: Patent bilaterally. Dural sinuses: Patent. Lung apices: Partially visualized upper lobe lung parenchyma appears clear. Soft tissues: The visualized pharyngeal soft tissues are normal in appearance noting angiographic phase technique. The oropharyngeal airway appears widely patent. The salivary and thyroid glands are normal in appearance. No cervical lymphadenopathy is seen. Skeletal structures: The skeletal structures are osteopenic. The calvarium appears intact. The cervical spine is maintained noting multilevel spondylosis. Orbits: The bony orbits are intact. Orbital contents are normal as visualized. Sinuses and mastoids: The paranasal sinuses are clear. There are bilateral mastoid effusions. IMPRESSION: 1. There is a large parenchymal hematoma centered in the posterior right parieto-occipital cortex with significant surrounding edema and minimal right to left midline shift. 2. There is intraventricular and subarachnoid extension as above. 3. There is also subdural extension along the right tentorium cerebelli. 4. Unremarkable CT angiogram of the brain. 5. Unremarkable CT angiogram of the neck. Findings were reported to Dr. Rios at the time of interpretation. ACT 112: Negative or not required by law. Electronically signed by: Lambert Trent M.D. 06/07/2023 7:22 AM PG Care Time/CCT Total # of Minutes Spent Total Time Spent with Patient: Total time spent is greater than 50% in coordination of care (as documented) at patient's floor/unit and/or counseling patient: I spent 90 minutes overall addressing this case: 15 min in medical data review/discussion with referring provider(s) and/or preparation for the visit 15 min in direct interaction with the patient/exam 40 min in Advance Care Planning/Goals of Care discussions as detailed above in note (must be >16min) 10 min in subsequent review and synthesis of assessment and plan 10 min communicating with other providers regarding the patient's case: ccm, nursing Advanced Care Planning 85736 Advanced Care Planning 30 Min 24000 Advanced Care Planning Additional 30 [place] [address] IN/OBS CONSULT LVL 5,80M Patient Type New History Comprehensive Exam Comprehensive Medical Decision Making High Complexity Diagnoses Dyspnea and respiratory abnormalities R06.00; R06.89 Coma, unspecified coma depth R40.20 Altered mental status type: coma Coma depth: unspecified coma depth Unconscious R40.20 Weakness generalized R53.1 Advanced care planning/counseling discussion Z71.89 Palliative care by specialist Z51.5 Midline shift of brain due to hematoma G93.89; S06.2X0S Subarachnoid hemorrhage I60.9 Intracranial hemorrhage I62.9 Scleroderma M34.9 Takotsubo cardiomyopathy I51.81 Interstitial lung disease J84.9 Additional Codes Advanced Care Planning - 14622 Advanced Care Planning 30 Min: 22957 Advanced Care Planning 30 Min ([id number]) Advanced Care Planning - 36859 Advanced Care Planning Additional 30 Min: 74123 Advanced Care Planning Additional 30 Min ([id number])
[2023-06-07] MEDS: ENALAPRILAT 1.25 MG in DEXTROSE 5% 25 ML IV STA (10:43)
[2023-06-07] MEDS ORDERED: HYDROmorphone BOLUS from BAG IV PRN (10:46)
[2023-06-07] MEDS ORDERED: LORazepam 2 MG in SYRINGE 0.25 ML IV PRN ×2 (10:46→10:56)
[2023-06-07] MEDS ORDERED: LORAZEPAM IV PRN (10:56)
[2023-06-07] MEDS: HYDROmorphone/NSS 100 MG/100 ML BAG IV SCH (11:09)
[2023-06-07] MEDS ORDERED: ICU Protocol for HYPERglycemia SCH (11:30)
[2023-06-07] MEDS ORDERED: ONDANSETRON INJ 2 MG/ML 2 ML VIAL IV PRN (18:39)
--- NOTE | 2023-06-07 19:04 | Electrocardiogram Report ---
Test Reason : Blood Pressure : / mmHG Vent. Rate : 092 BPM Atrial Rate : 092 BPM P-R Int : 168 ms QRS Dur : 100 ms QT Int : 342 ms P-R-T Axes : 068 -30 031 degrees QTc Int : 422 ms Normal sinus rhythm Left axis deviation Incomplete right bundle branch block Cannot rule out Anterior infarct (cited on or before 21-MAY-2023) Abnormal ECG When compared with ECG of 21-MAY-2023 13:42, Incomplete right bundle branch block is now Present Confirmed by Chilango Barrientos ([id number]) on 06/07/2023 7:04:42 PM Referred By: Confirmed By:Chilango Barrientos
[2023-06-07] MEDS: LORazepam 2 MG in SYRINGE 1 ML IV PRN (22:02)
[2023-06-08] MEDS: GLYCOPYRROLATE 0.2 MG/ML VIAL IV PRN (04:36)
[2023-06-08] MEDS: HYDROmorphone BOLUS from BAG IV PRN (05:46)
--- NOTE | 2023-06-08 07:17 | Hospitalist Progress Note ---
Date of Service June 08, 2023 Assessment & Plan (1) Hypertensive emergency: (2) Takotsubo cardiomyopathy: (3) Mild CAD: (4) Scleroderma: (5) Meningioma: Plan Pt is a 78 yo female with a past medical history of scleroderma, interstitial lung disease, Takotsubo cardiomyopathy, mild CAD, and hypertension who presents to the hospital on 06/03 from the Rheumatology office for HTN emergency, hospital course complicated by large hemorrhagic stroke on 06/06. Continue comfort care measures. Pt not in acute distress this morning, appears to be resting comfortably. Will continue to monitor for signs of distress and treat accordingly. Hospital course: #Acute hemorrhagic stroke - Last known well; 5:30 am 06/06 when bathing had no neuro deficits and was responding appropriately - stroke alert called around 6:50 am 06/06 due to L facial droop, slurred speech, and flaccid L arm and L leg - CT head showed large R parieto-occipital hemorrhage, 51.8 mm A-P dimension vs 32.5 mm left to right at largest - initially on nicardipine for BP control, but transitioned off with change to comfort care only #Hypertensive emergency - presented with BP 240s systolic and urine + protein from rheum office - question for concern of scleroderma renal crisis so home losartan was switched to captopril on 06/04 and was on TID dosing regime with systolics 150-160 during the day - BP at last known well was 178 systolic, when stroke alert called was 252/126 - pt taken off monitor with transition to comfort care only on 06/06 #Deconditioning, - family note steady decline of pt in terms of strength and appetite for a long time now, worsened 1 week prior to admission #Hx of Scleroderma Follows with [facility] rheumatology; has had progressively increasing blood pressure as outpatient, 246 systolic and outpatient management. Concern for scleroderma renal crisis. UA with 2+ protein. CXR: No acute findings did not appear to actually be in a scleroderma renal crisis on admission but was treated as such due to high risk of progression #Meningioma - no focal neuro deficits noted on admission CThead: Possible small posterior fossa meningioma, no acute findings. <1.2cm extraaxial lesion?meningioma #Hx of Takotsubo cardiomyopathy: #CAD Takotsubo cardiomyopathy EF 30-35% in 2021, cath without significant ischemic changes although? LV thrombus and was treated with a course of Eliquis; follow- up MRI with no evidence of LV thrombus and cardiomyopathy improved Chronic mild troponin elevation, 41 on admission repeat downtrending at 38.1 suspect due to hypertension EKG normal sinus rhythm without territorial ST/T wave changes on admission No signs of ACS on admission #Hx H. pylori infection #Hx gastritis With history of candidiasis 02/2023. Gastritis was noted. Biopsies c onsistent with severe chronic gastritis, intestinal metaplasia negative for dysplasia, H. pylori was positive. - Completed a course of both antibiotics with antifungal for associated abby. Completed triple antibiotic therapy this past month - Continue home famotidine and PPI #Hyperlipidemia Continue home statin #COPD Continue Breo Continue [facility] pulmonary follow-up DVT prophylaxis: none Admission and Anticipated Discharge Date Admission Date: June 04, 2023 Supervising Physician Co-Signing Physician Notes Attending Physician Supervision Note: I independently interviewed and examined the patient and verified the frausto history and physical, reviewed labs and image studies and agree with findings and care plan noted above. Comfort care - -Dilaudid drip. -scopolamine patch to help with secretions Acute hemorrhagic stroke with midline shift - 06/07/23. -large parenchymal hematoma centered in the posterior right parieto-occipital cortex with significant surrounding edema and minimal right to left midline shift. Extension in surrounding structures. -Transfer to tertiary care arranged but after discussion with family by ICU team regarding grave prognosis - decision make to transition to comfort care. Hypertensive emergency - in setting of scleroderma. Was on nifedipine and losartan at home. Losartan switched to captopril on admission -Now on comfort care. SUZY with underlying scleroderma and systolic cardiac dysfunction. CMP -now on comfort care Subjective Today, pt is resting comfortably. No longer awakens to verbal stimuli. No signs of acute distress at this point in time. Family present today and no questions or complaints when seen this morning. Review of Systems Review of Systems: Per HPI. Physical Exam 2 Physical Exam: General:Asleep, no acute distress Cardio: Regular rhythm, tachycardic Resp:No signs of respiratory distress at this time, breathing comfortably GI: Soft, bowel sounds active Skin: Warm, dry Resident Activity Tracking Resident Involvement: Resident Care Provided Care Provided: Adult Hospital Medicine
[2023-06-08] MEDS: LORazepam 4 MG in SYRINGE 2 ML IV PRN (08:20)
[2023-06-08] MEDS: SCOPOLAMINE 1 MG/72 HR TDSY PATCH TD ONE (12:09)
[2023-06-08] MEDS: ACETAMINOPHEN 1,000 MG/100 ML VIAL IV PRN (12:09)
[2023-06-08] MEDS: CHECK SCOPOLAMINE PATCH PLACEMENT SCH ×2 (15:12→16:21)
--- NOTE | 2023-06-09 03:43 | Death Pronouncement Note ---
Date of Service June 09, 2023 Pronouncement Note Admission Date Admission Date: June 04, 2023 Contributing Factors (1) Hypertensive emergency: (2) Takotsubo cardiomyopathy: (3) Mild CAD: (4) Scleroderma: (5) Meningioma: Summary Additional details: I was called to pronounce the of Edith Snyder :1945 by nursing on 06/09/2023. Upon entering the room, the patient was found to be in a terminal state. Her two daughters were at bedside and opted to stay in the room for the exam. Patient was unresponsive to verbal and tactile stimuli. Patient unresponsive to pupillary reflexes. On cardiopulmonary exam, no carotid or radial pulses found and pt without spontaneous heart tones or respirations. Time of was pronounced by me on 06/09/2023 at 03:32. Attending physician and day team were notified. Pt's 2 daughters were at bedside for exam. I offered to call other family members; they opted to inform the rest of the family. All questions were answered and condolences offered. Additional Data Attending physician: Anum Villar MD Resident Activity Tracking Resident Involvement: Resident Care Provided Care Provided: Adult Hospital Medicine
[2023-06-11] MEDS ORDERED: SCOPOLAMINE 1 MG/72 HR TDSY PATCH TD SCH (12:00)
--- NOTE | 2023-06-17 16:54 | Discharge Summary ---
Date of Service June 17, 2023 Admission HPI Per Admitting Provider Edith is a 78-year-old female with a past medical history of interstitial lung disease, Takotsubo cardiomyopathy, mild CAD, whitecoat hypertension who was sent to the ER for hypertension. She did not take her BP meds morning of presentation. Patient notes that she has a history of scleroderma. Has had exertional dyspnea, weakness, mild headache. Persistent urinary frequency and urgency without dysuria. Endorses weight loss Eliane is seen at bedside with her daughters. She reports that she has had generally difficult to control blood pressure and this has been particularly high in the last 2 weeks. She has had intermittent chest pain although this has not been exertional or brought up with exertion, does seem to come out when her blood pressure is high. Some intermittent shortness of breath but again this is not exertional. Denies fever, chills, cough, sputum production. Does have a history of reflux and recently completed a course of triple antibiotic therapy for H. pylori in addition to antifungal course for candidiasis. Stomach feels better sometimes a little bit of reflux, but has a greatly diminished appetite. Denies lightheadedness, dizziness, syncope. Has had polyuria without dysuria. No abdominal or flank pain. No lightheadedness/dizziness or syncope. She has had no bleeding and denies rashes. She does have a chronic decrease in visual acuity bilaterally and a history of cataracts. Endorses intermittent headache, none at present. She is not sure if this is associated with blood pressure or not. She does not have any weakness or vision change when she has headache, and does not have first morning headaches. Medical History: Reviewed Medications: Reviewed Surgical History: Reviewed Family history: Reviewed Allergies: Reviewed Social History: Reviewed Code Status: Full Admission Exam Per Admitting Provider General: A&Ox3. NAD. Cooperative. HEENT: Atraumatic, normocephalic. Vision and hearing grossly intact. Pupils equal and reactive to light, decreased visual acuity improved with glasses, cataracts appreciable. No facial Pulm: CTAB A&P. -wheezes, -rales, -rhonchi. Symmetrical chest rise. No increased work of breathing. No respiratory distress. Cardiac: RRR, soft sm. Radial pulses intact and symmetrical. Abdominal: Nontender, nondistended, soft. BS present. Extremities: Aprn strength, elbow flexion, hip flexion, ankle dorsiflexion/plantarflexion / without asymmetry and sensation intact to soft touch in hands and feet bilaterally. No ankle edema Principal Diagnosis Hemorrhagic stroke, HTN emergency, scleroderma Discharge Exam Per Note 06/08 Discharge Data Allergies Allergy/AdvReac Type Severity Reaction Status Date / Time amlodipine [From Deng] Allergy Rash Verified 06/04/23 12:48 olmesartan [From Benicar] Allergy Rash Verified 06/04/23 12:48 Consultations 06/04/23 17:41 ED Decision to Admit Stat 06/07/23 07:48 Consult Mannequin Molder Routine 06/07/23 10:03 Consult Palliative Care Routine Ordered Studies 06/04/23 15:12 CT head/brain wo con Stat 06/06/23 US duplex renal artery Routine 06/06/23 17:56 US renal/blad retro comp Routine 06/07/23 06:54 CT angio head w con Stat CT angio neck with con Stat CT head/brain wo con Stat Hospital Course (1) Hypertensive emergency: (2) Takotsubo cardiomyopathy: (3) Mild CAD: (4) Scleroderma: (5) Meningioma: Plan Pt is a 78 yo female with a past medical history of scleroderma, interstitial lung disease, Takotsubo cardiomyopathy, mild CAD, and hypertension who presents to the hospital on 06/03 from the Rheumatology office for HTN emergency, hospital course complicated by large hemorrhagic stroke on 06/06. Pt was placed on comfort measures on 06/06 and on 06/08. See note for details. Hospital course: #Acute hemorrhagic stroke - Last known well; 5:30 am 06/06 when bathing had no neuro deficits and was responding appropriately - stroke alert called around 6:50 am 06/06 due to L facial droop, slurred speech, and flaccid L arm and L leg - CT head showed large R parieto-occipital hemorrhage, 51.8 mm A-P dimension vs 32.5 mm left to right at largest - initially on nicardipine for BP control, but transitioned off with change to comfort care only 06/06 #Hypertensive emergency - presented with BP 240s systolic and urine + protein from rheum office - question for concern of scleroderma renal crisis so home losartan was switched to captopril on 06/04 and was on TID dosing regime with systolics 150-160 during the day - BP at last known well was 178 systolic, when stroke alert called was 252/126 - pt taken off monitor with transition to comfort care only on 06/06 #Deconditioning, - family note steady decline of pt in terms of strength and appetite for a long time now, worsened 1 week prior to admission #Hx of Scleroderma Follows with [facility] rheumatology; has had progressively increasing blood pressure as outpatient, 246 systolic and outpatient management. Concern for scleroderma renal crisis. UA with 2+ protein. CXR: No acute findings did not appear to actually be in a scleroderma renal crisis on admission but was treated as such due to high risk of progression #Meningioma - no focal neuro deficits noted on admission CThead: Possible small posterior fossa meningioma, no acute findings. <1.2cm extraaxial lesion?meningioma #Hx of Takotsubo cardiomyopathy: #CAD Takotsubo cardiomyopathy EF 30-35% in 2021, cath without significant ischemic changes although? LV thrombus and was treated with a course of Eliquis; follow- up MRI with no evidence of LV thrombus and cardiomyopathy improved Chronic mild troponin elevation, 41 on admission repeat downtrending at 38.1 suspect due to hypertension EKG normal sinus rhythm without territorial ST/T wave changes on admission No signs of ACS on admission Total Time Total Time Spent Total Time Spent (In Minutes): As per attending attestation. Discharge Plan Discharge Items Patient Disposition: Discharge Diagnosis: HTN emergency, hemorrhagic stroke Other Date/Time: 06/09/23 03:32
== END 2023-06-09 09:43 | disposition expired | DRG 304 ==
LOC: ED 14:20 → SUATTDRO 18:44 → EDINP 18:44 → 2S 06-05 20:16 → 1E 06-07 07:22 → 3N 06-07 20:12